=== PATIENT | female | born 1940 | race Caucasian/White ===

== ENCOUNTER 2024-10-13 00:42 | Emergency (ER) | payer OTHER, SELFPAY ==
[2024-10-13 00:44] VITALS: BP 119/77
[2024-10-13 02:39] LABS: Urine Albumin 4+ (Neg - Trace); Urine Bilirubin 1+ (Negative); Urine Character Cloudy (Clear); Urine Color Brown; Urine Glucose Negative (Negative); Urine Ketone 1+ (Negative); Urine Leukocyte 3+ (Negative); Urine Nitrite Positive (Negative); Urine Occult Blood 4+ (Negative); Urine Urobilinogen 1+ (Neg - 1+)
--- NOTE | 2024-10-13 03:03 | ED.GENMED ---
History of Present Illness
General
Chief Complaint: Urinary Symptoms
Source: patient
Exam Limitations: none
Time Seen by Provider: 10/13/24 02:30
Nursing documentation reviewed up to this point in time: agreed with
History of Present Illness
History of Present Illness:
83-year-old female presents from [facility] for hematuria. Patient is on Eliquis. Denies any other symptoms. History is limited. Calls to [facility] to hurt thus far unanswered
Review of Systems
Review of Systems
Unable to obtain full review of systems at this time due to: dementia
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
All Other Systems: Not applicable
: Reports bleeding
Psychiatric: Reports anxiety
Phy Exam
General Physical Exam
General Presentation: mild distress
General age: appears stated age
General Habitus: elderly
General Mental: usual mental status
General Chronic Disability: contractures
Motor
Seizure Activity: none
Course
Orders/Labs/Results
Orders:
Orders
10/13/24 02:20
Urinalysis Reflex To Culture Urgent
Date Specimen was Collected: 10/13/24
Time Specimen was Collected: 02:20
Urine Microscopic Reflex Cult Urgent
Urine Culture Urgent
EMILIE Source: U
Specimen Description:
Date Specimen was Collected: 10/13/24
Time Specimen was Collected: 02:20
10/13/24 05:24
Urinalysis Reflex To Culture Urgent
Date Specimen was Collected: 10/13/24
Time Specimen was Collected: 05:22
Urine Microscopic Reflex Cult Urgent
Urine Culture Urgent
EMILIE Source: U
Specimen Description:
Date Specimen was Collected: 10/13/24
Time Specimen was Collected: 05:22
10/13/24 05:50
Fosfomycin [Monurol] 3 gm PO ONCE ONE
10/13/24 05:57
Fosfomycin [Monurol] 3 gm PO ONCE ONE
Abnormal Lab Results
10/13/24 10/13/24
02:20 05:24
Urine Ketones 1+ A 1+ A
(Negative) (Negative)
Ur Occult Blood Reflex 4+ A 4+ A
(Negative) (Negative)
Urine Nitrite (Reflex) Positive A Positive A
(Negative) (Negative)
Urine Bilirubin 1+ A
(Negative)
Leukocyte Esterase Rfl 3+ A 3+ A
(Negative) (Negative)
Urine RBC >100 A /HPF
(0-2)
Urine WBC (Reflex) >100 A /HPF
(0-5)
Urine Bacteria (Reflex) Few A
(Negative)
Urine Albumin (Reflex) 4+ A 4+ A
(Neg - Trace) (Neg - Trace)
Vital Signs
Initial and Last Documented VS:
Initial Vital Signs
Temp Pulse Resp BP Pulse Ox
98.2 F 66 20 119/77 96
10/13/24 00:44 10/13/24 00:44 10/13/24 00:44 10/13/24 00:44 10/13/24 00:44
Last Documented Vital Signs
Temp Pulse Resp BP Pulse Ox
98.2 F 66 20 134/71 95
10/13/24 00:44 10/13/24 00:44 10/13/24 00:44 10/13/24 04:05 10/13/24 04:15
*Critical Care Note
Total Time (30-74mins, 75-104mins- exclusive of procedures): Not Applicable
ED Attending Note
-
Portions of this chart may have been created with voice recognition software.� Occasional wrong word or��sound alike� substitutions may have occurred due to the inherent limitations of voice recognition software.
Discharge Plan
Departure
Patient Disposition: Alf/SNF
Date of Disposition: 10/13/24
Time of Disposition: 06:01
Discharge Problem:
Hematuria, Urinary tract infection
Prescriptions:
No Action
Tubersol 5 tub. unit /0.1 mL Solution
0.1 ml INTRADERMAL ONCE
sennosides [senna] 8.6 mg Tablet
8.6 mg PO HS
trazodone 50 mg Tablet
25 mg PO HS
polyethylene glycol 3350 17 gram Powder In Packet
17 g PO DAILY
pravastatin 40 mg Tablet
40 mg PO DAILY
donepezil 10 mg Tablet
10 mg PO HS
acetaminophen 650 mg Tablet Extended Release
650 mg PO Q4H PRN (Reason: mild pain)
magnesium hydroxide [Milk of Magnesia] 400 mg/5 mL Suspension
30 ml PO HS PRN (Reason: constipation)
nifedipine 60 mg Tablet Extended Release 24hr
60 mg PO DAILY
bisacodyl 10 mg Suppository
10 mg [place] DAILY PRN (Reason: constipation)
levothyroxine 125 mcg Tablet
125 mcg PO DAILY
bupropion HCl 75 mg Tablet
75 mg PO BID
omeprazole 20 mg Capsule,Delayed Release(Dr/Ec)
20 mg PO DAILY
docusate sodium 100 mg Tablet
100 mg PO BID
enoxaparin 100 mg/mL Syringe
94 mg SC DAILY
cholecalciferol (vitamin D3) 50 mcg (2,000 unit) Tablet
50 mcg PO DAILY
Biotene Moisturizing Mouth [place],Non-Aerosol
1 applic MUCOUS MEMBRANE Q2H PRN (Reason: dry mouth)
apixaban 5 mg Tablet
5 mg PO BID
melatonin 3 mg Capsule
6 mg PO HS PRN (Reason: sleep aid)
Referrals:
Josafat Oviedo I., DO [Family Provider] -
Activity Restrictions/Additional Instructions:
You had a one-time dose of antibiotic today. No prescription needed.
It was a pleasure meeting you and taking part in your care. We hope for your continued healing and wellness.
Please read discharge instructions in their entirety. However, they are for general education and may not describe your exact diagnosis at discharge. Information on your ER visit and medical conditions were discussed with you along with appropriate
follow up information...
If indicated, please take your medications as instructed and indicated on discharge paperwork.
Please schedule a follow up appointment as directed. Call to schedule an appointment
Please return to the emergency department with ANY change in, persisting, or worsening of symptoms. If any of your symptoms do not improve, or persist, or become more severe within 6-12 hours, please return to the emergency department for further
care.
Please return to the emergency department if you develop a headache, neck pain/stiffness, fever greater than 100.4F, chest pain, shortness of breath, persistent nausea, vomiting, slurred speech, difficulty walking, numbness/tingling, weakness, signs
of infection or any other symptoms that are worrisome to you.
If you have any questions or concerns please do not hesitate to call the Hospital at or E-mail me directly at [email or web address]
Interventions
Interventions:
*Risk Screen - Suicide Last Done: 10/13/24 00:44
*General Assessment Last Done: 10/13/24 00:44
*Neglect/Abuse Screening Last Done: 10/13/24 00:44
ED-Female Genitourinary Assessment Last Done: 10/13/24 01:59
Discharge Date and Time
Print Language: PERSIAN
[2024-10-13 03:35] LABS: Urine Red Blood Cell >100 /HPF (0-2); Urine White Cell >100 /HPF (0-5)
[2024-10-13 03:39] LABS: Urine Amorphous Seen; Urine Squamous Cell >30 /LPF (Few)
[2024-10-13 03:40] LABS: Urine Calcium Oxalate Crystals Seen; Urine Mucus Many; Urine Urothelial Cell >30 /LPF (FEW)
[2024-10-13 04:05] VITALS: BP 134/71
[2024-10-13 05:05] VITALS: BP 137/82
[2024-10-13 05:47] LABS: Urine Albumin 4+ (Neg - Trace); Urine Bilirubin Negative (Negative); Urine Character Cloudy (Clear); Urine Color Yellow; Urine Glucose Negative (Negative); Urine Ketone 1+ (Negative); Urine Leukocyte 3+ (Negative); Urine Nitrite Positive (Negative); Urine Occult Blood 4+ (Negative); Urine Urobilinogen 1+ (Neg - 1+)
[2024-10-13] MEDS: MONUROL 3 GM PO (06:38)
[2024-10-13 06:41] VITALS: BP 136/79
[2024-10-13 06:43] LABS: Urine Squamous Cell >30 /LPF (Few)
[2024-10-13 06:45] LABS: Urine Amorphous Seen; Urine Bacteria Many (Negative); Urine Calcium Oxalate Crystals Seen; Urine Red Blood Cell >100 /HPF (0-2); Urine Urothelial Cell >30 /LPF (FEW); Urine White Cell >100 /HPF (0-5)
[2024-10-13 06:52] LABS: Urine Mucus Many
[2024-10-13 06:53] LABS: Urine Bacteria Many (Negative)
[2024-10-13 10:34] VITALS: BP 132/76
== END 2024-10-13 10:39 ==
LOC: EMR 00:42
PROVIDERS: EMERGENCY PHYSICIAN Student in an Organized Health Care Education/Training Program; FAMILY PHYSICIAN Internal Medicine
DX: R31.9 Hematuria, unspecified (principal); N39.0 Urinary tract infection, site not specified; Z79.01 Long term (current) use of anticoagulants
CPT/HCPCS: 99282; 81003; 81015; 87077; 87086

== ENCOUNTER 2024-12-07 03:14 | Emergency (ER) | payer MEDICARE, SELFPAY ==
[2024-12-07 03:21] VITALS: BP 139/88; BMI 32.9
[2024-12-07 04:42] LABS: % Basophils 0.8 % (0-2); % Eosinophils 3.9 % (0-6); % Immature Granulocytes 0.8 % (0-0.5); % Neutrophils 62.5 % (42.2-75.2); Absolute Basophils 0.1 10^3/uL (0-0.2); Absolute Eosinophils 0.2 10^3/uL (0-0.7); Absolute Immature Granulocytes 0.1 10^3/uL (0-0.05); Absolute Lymphocytes 1.2 10^3/uL (1.2-3.4); Absolute Monocytes 0.7 10^3/uL (0.1-0.6); Absolute Neutrophils 3.8 10^3/uL (1.4-6.5); Hematocrit 36.8 % (37.0-47.0); Hemoglobin 12.1 g/dL (12.0-16.0); Mean Corp Hgb Conc. 32.9 g/dL (33.0-37.0); Mean Corpuscular Hgb 30.6 pg (27.0-31.0); Mean Corpuscular Volume 92.9 fL (81.0-99.0); Nucleated Red Blood Cells % 0 %; Platelet Count 265 10^3/uL (130-400); Red Blood Cell Count 3.96 10^6/uL (4.20-5.40); Red Cell Dist. Width 16.8 % (11.5-14.5); White Blood Cell Count 6.2 10^3/uL (4.8-10.8)
[2024-12-07 04:55] LABS: ALT (SGPT) 19 U/L (0-35); AST (SGOT) 28 U/L (14-36); Albumin 3.3 g/dl (3.5-5.0); Alkaline Phosphatase 93 U/L (38-126); Blood Urea Nitrogen 30 mg/dl (7-17); Calcium 10.3 mg/dl (8.4-10.2); Carbon Dioxide 25 mmol/L (22-30); Chloride 102 mmol/L (98-107); Estimated Creatinine Clearance 35 ml/min; Glucose 91 mg/dl (70-99); Potassium 4.1 mmol/L (3.5-5.1); Sodium 137 mmol/L (135-145); Total Bilirubin 0.8 mg/dl (0.2-1.3); Total Protein 5.8 g/dl (6.3-8.2); eGFR 44.91
--- NOTE | 2024-12-07 05:00 | ED.GENMED ---
History of Present Illness
<Seun Jovel MD, Resident - Last Filed: 12/07/24 06:36>
General
Chief Complaint: Fall
Time Seen by Provider: 12/07/24 04:07
History of Present Illness
History of Present Illness:
This is an 84-year-old female with medical history of Alzheimer's dementia who presents from nursing facility [facility] after episode of mechanical fall. Unable to obtain history from patient due to dementia. History obtained from EMS report.
Per ME Staff, patient is bedbound at baseline but tried to get up to go use the bathroom this evening. Patient fell, hit her head. Although they aren't sure if she had Loss of consciousness. Her forehead is bruised. I have tried calling [facility] to obtain history, no response.
Review of Systems
<Seun Jovel MD, Resident - Last Filed: 12/07/24 06:36>
Review of Systems
Unable to obtain full review of systems at this time due to: dementia
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
Phy Exam
<Seun Jovel MD, Resident - Last Filed: 12/07/24 06:36>
General Physical Exam
General Presentation: moderate distress
General Habitus: obese
Course
<Seun Jovel MD, Resident - Last Filed: 12/07/24 06:36>
Orders/Labs/Results
Orders:
Orders
12/07/24 03:17
CT Head W/o Iv Contrast Urgent
Comment:
Reason For Exam: fall with head strike on thinners
Cervical Spine wo Contrast CT [CT Cervical Spine W/o Iv Contr] Urgent
Comment:
Reason For Exam: fall with head strike on thinners
CR Humerus - Right Min 2 View* Urgent
Comment:
Reason For Exam: fall
Shoulder, Right, Trauma [CR Shoulder, Trauma - Right] Urgent
Comment:
Reason For Exam: fall
12/07/24 03:25
CR Shoulder, Trauma - Left Urgent
Comment:
Reason For Exam: pain after fall
Humerus, Left 2 Views [CR Humerus - Left Min 2 Views*] Urgent
Comment:
Reason For Exam: pain s/p fall
12/07/24 04:18
Complete Blood Count/With Diff Urgent
Comprehensive Metabolic Panel Urgent
Urinalysis Reflex To Culture Urgent
Date Specimen was Collected: 12/07/24
Time Specimen was Collected: 04:02
Urine Microscopic Reflex Cult Urgent
Urine Culture Urgent
EMILIE Source: U
Specimen Description:
Date Specimen was Collected: 12/07/24
Time Specimen was Collected: 04:02
Abnormal Lab Results
12/07/24
04:18
RBC 3.96 L 10^6/uL
(4.20-5.40)
Hct 36.8 L %
(37.0-47.0)
MCHC 32.9 L g/dL
(33.0-37.0)
RDW 16.8 H %
(11.5-14.5)
MPV 11.0 H fL
(7.4-10.4)
Abs Immat Gran (auto) 0.1 H 10^3/uL
(0-0.05)
Absolute Monos (auto) 0.7 H 10^3/uL
(0.1-0.6)
Immature Gran % 0.8 H %
(0-0.5)
Lymphocytes % 20.0 L %
(20.5-51.1)
Monocytes % 12.0 H %
(1.7-9.3)
BUN 30 H mg/dl
(7-17)
Creatinine 1.2 H mg/dL
(0.6-1.0)
Calcium 10.3 H mg/dl
(8.4-10.2)
Total Protein 5.8 L g/dl
(6.3-8.2)
Albumin 3.3 L g/dl
(3.5-5.0)
Urine Ketones 1+ A
(Negative)
Ur Occult Blood Reflex 4+ A
(Negative)
Leukocyte Esterase Rfl 3+ A
(Negative)
Urine RBC 60-70 A /HPF
(0-2)
Urine WBC (Reflex) >100 A /HPF
(0-5)
Urine Bacteria (Reflex) Many A
(Negative)
Urine Albumin (Reflex) 3+ A
(Neg - Trace)
12/07/24 04:18
12/07/24 04:18
Vital Signs
Initial and Last Documented VS:
Initial Vital Signs
Pulse Ox
96
12/07/24 03:19
Last Documented Vital Signs
Temp Pulse Resp BP Pulse Ox
97.6 F 76 15 155/91 98
12/07/24 03:21 12/07/24 06:00 12/07/24 05:15 12/07/24 06:00 12/07/24 05:15
<Maddie Egan DO - Last Filed: 12/07/24 07:13>
Orders/Labs/Results
Orders:
Orders
12/07/24 03:17
CT Head W/o Iv Contrast Urgent
Comment:
Reason For Exam: fall with head strike on thinners
Cervical Spine wo Contrast CT [CT Cervical Spine W/o Iv Contr] Urgent
Comment:
Reason For Exam: fall with head strike on thinners
CR Humerus - Right Min 2 View* Urgent
Comment:
Reason For Exam: fall
Shoulder, Right, Trauma [CR Shoulder, Trauma - Right] Urgent
Comment:
Reason For Exam: fall
12/07/24 03:25
CR Shoulder, Trauma - Left Urgent
Comment:
Reason For Exam: pain after fall
Humerus, Left 2 Views [CR Humerus - Left Min 2 Views*] Urgent
Comment:
Reason For Exam: pain s/p fall
12/07/24 04:18
Complete Blood Count/With Diff Urgent
Comprehensive Metabolic Panel Urgent
Urinalysis Reflex To Culture Urgent
Date Specimen was Collected: 12/07/24
Time Specimen was Collected: 04:02
Urine Microscopic Reflex Cult Urgent
Urine Culture Urgent
EMILIE Source: U
Specimen Description:
Date Specimen was Collected: 12/07/24
Time Specimen was Collected: 04:02
Abnormal Lab Results
12/07/24
04:18
RBC 3.96 L 10^6/uL
(4.20-5.40)
Hct 36.8 L %
(37.0-47.0)
MCHC 32.9 L g/dL
(33.0-37.0)
RDW 16.8 H %
(11.5-14.5)
MPV 11.0 H fL
(7.4-10.4)
Abs Immat Gran (auto) 0.1 H 10^3/uL
(0-0.05)
Absolute Monos (auto) 0.7 H 10^3/uL
(0.1-0.6)
Immature Gran % 0.8 H %
(0-0.5)
Lymphocytes % 20.0 L %
(20.5-51.1)
Monocytes % 12.0 H %
(1.7-9.3)
BUN 30 H mg/dl
(7-17)
Creatinine 1.2 H mg/dL
(0.6-1.0)
Calcium 10.3 H mg/dl
(8.4-10.2)
Total Protein 5.8 L g/dl
(6.3-8.2)
Albumin 3.3 L g/dl
(3.5-5.0)
Urine Ketones 1+ A
(Negative)
Ur Occult Blood Reflex 4+ A
(Negative)
Leukocyte Esterase Rfl 3+ A
(Negative)
Urine RBC 60-70 A /HPF
(0-2)
Urine WBC (Reflex) >100 A /HPF
(0-5)
Urine Bacteria (Reflex) Many A
(Negative)
Urine Albumin (Reflex) 3+ A
(Neg - Trace)
12/07/24 04:18
12/07/24 04:18
Vital Signs
Initial and Last Documented VS:
Initial Vital Signs
Pulse Ox
96
12/07/24 03:19
Last Documented Vital Signs
Temp Pulse Resp BP Pulse Ox
97.6 F 76 15 155/91 98
12/07/24 03:21 12/07/24 06:00 12/07/24 05:15 12/07/24 06:00 12/07/24 05:15
<Seun Jovel MD, Resident - Last Filed: 12/07/24 06:36>
MDM/Problems Addressed
MDM/Problems Addressed:
84-year-old female with past medical history of Alzheimer's dementia presents to the ED after falling at the care home while trying to graze bathroom. Patient is bedbound at baseline. She did strike her head. At this time we will evaluate with
CT scan of the head. In addition we will order a cervical spine CT
<Seun Jovel MD, Resident - Last Filed: 12/07/24 06:36>
*Critical Care Note
Total Time (30-74mins, 75-104mins- exclusive of procedures): Not Applicable
<Maddie Egan DO - Last Filed: 12/07/24 07:13>
*Radiology
Radiology exam reviewed: preliminary read by ED provider (Chronic appearing right proximal humerus fracture. Left humerus and shoulder x-rays unremarkable.) and radiology read reviewed
*Pulse Oximetry
Patient hypoxic: no
ED Attending Note
<Seun Jovel MD, Resident - Last Filed: 12/07/24 06:36>
-
Portions of this chart may have been created with voice recognition software.� Occasional wrong word or��sound alike� substitutions may have occurred due to the inherent limitations of voice recognition software.
<Maddie Egan DO - Last Filed: 12/07/24 07:13>
ED Attending Note
Patient seen and examined by attending physician: Yes
I performed a history and physical exam of patient and discussed management with resident, I reviewed resident's note and agree with documented findings and plan of care.: Yes
ED Attending Note:
This is an 84-year-old woman, resident of a local care home. She has prior history of C2 cervical spine fracture, history of right proximal humerus fracture, chronic kidney disease, neurogenic bladder with chronic indwelling Torres catheter.
Nonambulatory according to care home. History of dementia, DVT, chronically maintained on Eliquis.
Suffered an unwitnessed fall at the care home, apparently tried to get up out of bed and has sustained a right forehead contusion.
She arrives via EMS with cervical collar in place. According to EMS and nursing staff patient is at her baseline neurologic state. No focal neurodeficits. She does have an element of chronic neck and shoulder pain.
According to our nursing staff patient arrived with Torres catheter partially dislodged. This was removed by our nursing staff and a new Torres catheter placed.
Patient is awake and alert, confused, denies falling.
HEENT: Right forehead soft tissue contusion. Moderate local tenderness to palpation. Extraocular muscles intact.
Cervical collar in place. Loosened by myself. There is no midline bony tenderness. No step-off deformity. Cervical collar resecured.
Mild tenderness about the right shoulder with mildly decreased range of motion right shoulder. There is no contusion or soft tissue swelling.
No chest wall tenderness. Heart is regular rate and rhythm.
Lungs are clear to auscultation.
Abdomen is rotund, soft, nontender. Torres catheter in place draining yellow slightly cloudy urine.
Extremities: No clubbing or cyanosis nor edema. Peripheral pulses are full and equal.
Neuro: Awake and alert, oriented x 1. No focal neurodeficits.
This patient maintained on Eliquis, forehead contusion concern for intracranial injury. Will check CT of the head.
History of C2 cervical spine fracture; will check CT cervical spine.
Overall appears to be at her baseline.
06:55
CT of the head shows no acute traumatic findings. Forehead contusion noted. No calvarial fracture.
Age-indeterminate dens fracture�nondisplaced. This appears consistent with history.
X-rays show chronic appearing impacted right proximal humerus fracture. No fracture to the left shoulder nor upper arm.
Labs are unremarkable. Normal white blood cell count. Creatinine of 1.2 I suspect this patient's baseline.
She remains afebrile.
Urinalysis is pending and I suspect chronic bacteriuria related to chronic indwelling Torres catheter. As patient has been afebrile, normal white blood cell count will hold off on antibiotic and await urine culture.
Will keep cervical collar in place and will discharge back to care home for continued care.
Discharge Plan
Departure
Patient Disposition: Senior Living/SNF
Date of Disposition: 12/07/24
Time of Disposition: 06:57
Discharge Problem:
Fall at care home, Forehead contusion, Nondisplaced odontoid fracture with type II morphology and delayed healing, chronic right proximal humerus fracture, Urinary catheter (Torres) change required
Instructions: Head Injury in Adults (DC), Preventing falls in adults
Prescriptions:
No Action
sennosides [senna] 8.6 mg Tablet
8.6 mg PO HS
trazodone 50 mg Tablet
25 mg PO HS
polyethylene glycol 3350 17 gram Powder In Packet
17 g PO DAILY
pravastatin 40 mg Tablet
40 mg PO DAILY
donepezil 10 mg Tablet
10 mg PO HS
acetaminophen 650 mg Tablet Extended Release
650 mg PO Q4H PRN (Reason: mild pain)
magnesium hydroxide [Milk of Magnesia] 400 mg/5 mL Suspension
30 ml PO HS PRN (Reason: constipation)
nifedipine 60 mg Tablet Extended Release 24hr
60 mg PO DAILY
bisacodyl 10 mg Suppository
10 mg [place] DAILY PRN (Reason: constipation)
levothyroxine 125 mcg Tablet
125 mcg PO DAILY
bupropion HCl 75 mg Tablet
75 mg PO BID
omeprazole 20 mg Capsule,Delayed Release(Dr/Ec)
20 mg PO DAILY
docusate sodium 100 mg Tablet
100 mg PO BID
cholecalciferol (vitamin D3) 50 mcg (2,000 unit) Tablet
50 mcg PO DAILY
Biotene Moisturizing Mouth [place],Non-Aerosol
1 applic MUCOUS MEMBRANE Q2H PRN (Reason: dry mouth)
apixaban 5 mg Tablet
5 mg PO BID
melatonin 3 mg Capsule
6 mg PO HS
ipratropium-albuterol 0.5 mg-3 mg(2.5 mg base)/3 mL Solution For Nebulization
3 ml INHALATION Q6H PRN (Reason: sob)
Referrals:
Josafat Oviedo I., DO [Family Provider] - Call in 1-3 days for appt
Activity Restrictions/Additional Instructions:
torres catheter changed
urine culture is pending
Interventions
Interventions:
*Risk Screen - Suicide Last Done: 12/07/24 03:21
*General Assessment Last Done: 12/07/24 03:21
*Neglect/Abuse Screening Last Done: 12/07/24 03:21
*ED COVID-19 Vaccine History Last Done: 12/07/24 03:21
ED-Musculoskeletal Assessment Last Done: 12/07/24 03:30
ED- Neurological Assessment Last Done: 12/07/24 03:30
ED-Skin Assessment Last Done: 12/07/24 03:30
Discharge Date and Time
Print Language: TAMAZIGHT
[2024-12-07 05:17] LABS: Urine Albumin 3+ (Neg - Trace); Urine Bilirubin Negative (Negative); Urine Character Cloudy (Clear); Urine Color Amber; Urine Glucose Negative (Negative); Urine Ketone 1+ (Negative); Urine Leukocyte 3+ (Negative); Urine Nitrite Negative (Negative); Urine Occult Blood 4+ (Negative); Urine Urobilinogen Negative (Neg - 1+)
[2024-12-07 06:00] VITALS: BP 155/91
[2024-12-07 06:26] LABS: Urine Bacteria Many (Negative); Urine Squamous Cell >30 /LPF (Few); Urine White Cell >100 /HPF (0-5)
[2024-12-07 06:27] LABS: Urine Red Blood Cell 60-70 /HPF (0-2)
[2024-12-07 06:28] LABS: Urine Calcium Oxalate Crystals Seen
[2024-12-07 07:00] VITALS: BP 124/66
[2024-12-07 08:01] VITALS: BP 175/79
[2024-12-07 09:00] VITALS: BP 142/69
== END 2024-12-07 09:17 ==
LOC: EMR 03:14
PROVIDERS: EMERGENCY PHYSICIAN Emergency Medicine; FAMILY PHYSICIAN Internal Medicine
DX: S00.83XA Contusion of other part of head, initial encounter (principal); W19.XXXA Unspecified fall, initial encounter; S12.112G Nondisplaced Type II dens fracture, subsequent encounter for fracture with delayed healing; M84.421A Pathological fracture, right humerus, initial encounter for fracture; G89.29 Other chronic pain; M54.2 Cervicalgia; F02.80 Dementia in other diseases classified elsewhere, unspecified severity, without behavioral disturbance, psychotic disturbance, mood disturbance, and anxiety; G30.9 Alzheimer's disease, unspecified; N18.9 Chronic kidney disease, unspecified; N31.9 Neuromuscular dysfunction of bladder, unspecified; Z46.6 Encounter for fitting and adjustment of urinary device; Z74.01 Bed confinement status; I82.509 Chronic embolism and thrombosis of unspecified deep veins of unspecified lower extremity; Z79.01 Long term (current) use of anticoagulants
CPT/HCPCS: 51702; 99284; 70450; 72125; 73030; 73060; 80053; 81003; 81015; 85025; 87086

== ENCOUNTER 2025-01-09 13:36 | Emergency (ER) | payer MEDICARE, SELFPAY ==
[2025-01-09 13:46] VITALS: BP 143/125
[2025-01-09 14:00] VITALS: BP 118/72
[2025-01-09 15:00] VITALS: BP 111/65
[2025-01-09 16:00] VITALS: BP 81/53
[2025-01-09 17:00] VITALS: BP 109/94
[2025-01-09 19:07] LABS: Urine Albumin 4+ (Neg - Trace); Urine Bilirubin Negative (Negative); Urine Character Cloudy (Clear); Urine Color Yellow; Urine Glucose Negative (Negative); Urine Ketone 1+ (Negative); Urine Leukocyte 3+ (Negative); Urine Nitrite Positive (Negative); Urine Occult Blood 4+ (Negative); Urine Specific Gravity 1.025 (<1.030); Urine Urobilinogen Negative (Neg - 1+)
[2025-01-09 19:07] LABS: % Basophils 0.8 % (0-2); % Eosinophils 0.9 % (0-6); % Immature Granulocytes 2.8 % (0-0.5); % Monocytes 5.9 % (1.7-9.3); % Neutrophils 76.6 % (42.2-75.2); Absolute Basophils 0.1 10^3/uL (0-0.2); Absolute Eosinophils 0.1 10^3/uL (0-0.7); Absolute Immature Granulocytes 0.3 10^3/uL (0-0.05); Absolute Lymphocytes 1.3 10^3/uL (1.2-3.4); Absolute Monocytes 0.6 10^3/uL (0.1-0.6); Absolute Neutrophils 7.5 10^3/uL (1.4-6.5); Hematocrit 40.9 % (37.0-47.0); Hemoglobin 13.8 g/dL (12.0-16.0); Mean Corp Hgb Conc. 33.7 g/dL (33.0-37.0); Mean Corpuscular Hgb 31.2 pg (27.0-31.0); Mean Corpuscular Volume 92.3 fL (81.0-99.0); Mean Platelet Volume 10.8 fL (7.4-10.4); Nucleated Red Blood Cells % 0 %; Platelet Count 288 10^3/uL (130-400); Red Blood Cell Count 4.43 10^6/uL (4.20-5.40); Red Cell Dist. Width 16.2 % (11.5-14.5); White Blood Cell Count 9.8 10^3/uL (4.8-10.8)
[2025-01-09 19:22] LABS: Urine Bacteria Many (Negative); Urine White Cell >100 /HPF (0-5)
[2025-01-09 19:29] LABS: ALT (SGPT) 15 U/L (0-35); AST (SGOT) 23 U/L (14-36); Albumin 3.2 g/dl (3.5-5.0); Alkaline Phosphatase 75 U/L (38-126); Blood Urea Nitrogen 39 mg/dl (7-17); Calcium 10.1 mg/dl (8.4-10.2); Carbon Dioxide 21 mmol/L (22-30); Chloride 110 mmol/L (98-107); Glucose 91 mg/dl (70-99); Potassium 3.8 mmol/L (3.5-5.1); Sodium 140 mmol/L (135-145); Total Bilirubin 0.8 mg/dl (0.2-1.3); Total Protein 5.7 g/dl (6.3-8.2)
[2025-01-09] MEDS: MONUROL 3 GM PO (20:40)
--- NOTE | 2025-01-10 15:56 | ED.GENMED ---
History of Present Illness
General
Chief Complaint: Change in Mental Status
Source: family (daughter) and long-term
Exam Limitations: none
Time Seen by Provider: 01/09/25 16:40
Nursing documentation reviewed up to this point in time: agreed with
History of Present Illness
History of Present Illness:
Patient to ED from [place] for report of unresponsiveness by NH staff. EMS reports ptient was sitting in chair talking when they arrived. Brought to ED for eval. She is awake but confused (baseling). Daughter at bedside. Daughter does not note any
changes with patient.
Past History
Past History
ED Past Medical History: Arrthythmia (afib), GERD, Hypothyroidism and Psychiatric (dementia)
ED Past Surgical History: Urological (urostomy)
Review of Systems
Review of Systems
Allergies reviewed?: Yes
All Other Systems: ROS reviewed and negative except as documented in HPI and ROS
Constitutional: Reports no symptoms
EENT: Reports no symptoms
Respiratory: Reports no symptoms
Cardiac: Reports no symptoms
ABD/GI: Reports no symptoms
: Reports other (urostomy tube. Thick cloudy urine)
Musculoskeletal: Reports no symptoms
Skin: Reports no symptoms
Neurological: Reports no symptoms
Psychiatric: Reports no symptoms (NH staff reports that she was unresponsive earlier today. )
Phy Exam
General Physical Exam
General Presentation: no apparent distress
General age: appears stated age
General Skin: warm and dry
General Habitus: elderly
General Mental: confused (baseline)
Cardiovascular Exam
Cardiovascular Exam: regular rate/rhythm
Pulmonary Exam
Pulmonary Exam: lungs clear and no respiratory distress
Gastrointestinal Exam
Gastrointestinal Exam: normal bowel sounds, non tender, soft, no organomegaly and non distended
Musculoskeletal Exam
Musculoskeletal Exam: full ROM and neuro vasc intact
Skin Exam
Skin Exam: normal color, warm/dry and no rash
Psychiatric Exam
Psychiatric Exam: normal mood/affect
Course
Orders/Labs/Results
Orders:
Orders
01/09/25 17:46
Urinalysis Reflex To Culture Urgent
Date Specimen was Collected: 01/09/25
Time Specimen was Collected: 17:00
Urine Microscopic Reflex Cult Urgent
Urine Culture Urgent
EMILIE Source: U
Specimen Description:
Date Specimen was Collected: 01/09/25
Time Specimen was Collected: 17:00
01/09/25 19:02
Complete Blood Count/With Diff Urgent
Comprehensive Metabolic Panel Urgent
01/09/25 20:18
Fosfomycin [Monurol] 3 gm PO ONCE ONE
Abnormal Lab Results
01/09/25 01/09/25
17:46 19:02
MCH 31.2 H pg
(27.0-31.0)
RDW 16.2 H %
(11.5-14.5)
MPV 10.8 H fL
(7.4-10.4)
Abs Immat Gran (auto) 0.3 H 10^3/uL
(0-0.05)
Absolute Neuts (auto) 7.5 H 10^3/uL
(1.4-6.5)
Immature Gran % 2.8 H %
(0-0.5)
Neutrophils % 76.6 H %
(42.2-75.2)
Lymphocytes % 13.0 L %
(20.5-51.1)
Chloride 110 H mmol/L
(98-107)
Carbon Dioxide 21 L mmol/L
(22-30)
BUN 39 H mg/dl
(7-17)
Creatinine 1.6 H mg/dL
(0.6-1.0)
Total Protein 5.7 L g/dl
(6.3-8.2)
Albumin 3.2 L g/dl
(3.5-5.0)
Urine Ketones 1+ A
(Negative)
Ur Occult Blood Reflex 4+ A
(Negative)
Urine Nitrite (Reflex) Positive A
(Negative)
Leukocyte Esterase Rfl 3+ A
(Negative)
Urine WBC (Reflex) >100 A /HPF
(0-5)
Urine Bacteria (Reflex) Many A
(Negative)
Urine Albumin (Reflex) 4+ A
(Neg - Trace)
01/09/25 19:02
01/09/25 19:02
Vital Signs
Initial and Last Documented VS:
Initial Vital Signs
Temp Pulse Resp Pulse Ox
98.8 F 79 15 97
01/09/25 13:43 01/09/25 13:43 01/09/25 13:43 01/09/25 13:43
Last Documented Vital Signs
Temp Pulse Resp BP Pulse Ox
98.8 F 67 21 109/94 97
01/09/25 13:43 01/09/25 21:00 01/09/25 21:00 01/09/25 17:00 01/09/25 19:00
*Radiology
Radiology exam reviewed: radiology read reviewed
*Pulse Oximetry
Patient hypoxic: no
*Critical Care Note
Total Time (30-74mins, 75-104mins- exclusive of procedures): Not Applicable
Update Note
Update Note:
Patient to ED from [facility] with report of unresponsiveness. In ED she is arousable, talkative but confused (baseline). Labs reviewed. UA reflecting UTI. Monurol given in ED. She remains afebrile. Will discharge back to long-term.
ED Attending Note
-
Portions of this chart may have been created with voice recognition software.� Occasional wrong word or��sound alike� substitutions may have occurred due to the inherent limitations of voice recognition software.
Discharge Plan
Departure
Patient Disposition: Home (Routine Discharge)
Date of Disposition: 01/09/25
Time of Disposition: 20:18
Patient with high blood pressure during this ER visit?: No
Condition: Good
Covid-19: Not Applicable
Discharge Problem:
UTI (urinary tract infection)
Instructions: Urinary tract infections in adults
Prescriptions:
No Action
sennosides [senna] 8.6 mg Tablet
8.6 mg PO HS
trazodone 50 mg Tablet
25 mg PO HS
polyethylene glycol 3350 17 gram Powder In Packet
17 g PO DAILY
pravastatin 40 mg Tablet
40 mg PO DAILY
donepezil 10 mg Tablet
10 mg PO HS
acetaminophen 650 mg Tablet Extended Release
650 mg PO Q4H PRN (Reason: mild pain)
magnesium hydroxide [Milk of Magnesia] 400 mg/5 mL Suspension
30 ml PO HS PRN (Reason: constipation)
nifedipine 60 mg Tablet Extended Release 24hr
60 mg PO DAILY
bisacodyl 10 mg Suppository
10 mg [place] DAILY PRN (Reason: constipation)
levothyroxine 125 mcg Tablet
125 mcg PO DAILY
bupropion HCl 75 mg Tablet
75 mg PO BID
omeprazole 20 mg Capsule,Delayed Release(Dr/Ec)
20 mg PO DAILY
docusate sodium 100 mg Tablet
100 mg PO BID
cholecalciferol (vitamin D3) 50 mcg (2,000 unit) Tablet
50 mcg PO DAILY
Biotene Moisturizing Mouth [place],Non-Aerosol
1 applic MUCOUS MEMBRANE Q2H PRN (Reason: dry mouth)
apixaban 5 mg Tablet
5 mg PO BID
melatonin 3 mg Capsule
6 mg PO HS
ipratropium-albuterol 0.5 mg-3 mg(2.5 mg base)/3 mL Solution For Nebulization
3 ml INHALATION Q6H PRN (Reason: sob)
Referrals:
Jamee Johansen MD [Family Provider] - Tomorrow
Interventions
Interventions:
*Risk Screen - Suicide Last Done: 01/09/25 13:43
*General Assessment Last Done: 01/09/25 13:43
*Neglect/Abuse Screening Last Done: 01/09/25 13:43
*Nursing Disposition Last Done: 01/09/25 21:15
ED- Pulmonary Assessment Last Done: 01/09/25 14:00
ED- Neurological Assessment Last Done: 01/09/25 14:00
ED- Cardiac Assessment Last Done: 01/09/25 14:00
ED Swallowing Screen Last Done: 01/09/25 14:00
Discharge Date and Time
Discharge Date/Time: 01/09/25 21:16
Print Language: ARABIC
== END 2025-01-09 21:16 | disposition home or self-care (01) ==
LOC: EMR 13:36
PROVIDERS: Nurse Practitioner; EMERGENCY PHYSICIAN Student in an Organized Health Care Education/Training Program; FAMILY PHYSICIAN Family Medicine
DX: N39.0 Urinary tract infection, site not specified (principal); I48.91 Unspecified atrial fibrillation; K21.9 Gastro-esophageal reflux disease without esophagitis; E03.9 Hypothyroidism, unspecified; F03.90 Unspecified dementia, unspecified severity, without behavioral disturbance, psychotic disturbance, mood disturbance, and anxiety
CPT/HCPCS: 99283; 80053; 81003; 81015; 85025; 87077; 87086

== ENCOUNTER 2025-01-10 21:27 | Inpatient (IN) | payer MEDICARE, SELFPAY ==
[2025-01-10] VITALS (14 sets, daily range): BP systolic 99–153; BP diastolic 52–92; BMI 31.5
[2025-01-10] MEDS: NSS 1000 IV (16:56)
[2025-01-10 17:06] LABS: Urine Albumin 3+ (Neg - Trace); Urine Bilirubin Negative (Negative); Urine Character Cloudy (Clear); Urine Color Yellow; Urine Glucose Negative (Negative); Urine Ketone 1+ (Negative); Urine Leukocyte 3+ (Negative); Urine Nitrite Positive (Negative); Urine Occult Blood 4+ (Negative); Urine Specific Gravity 1.025 (<1.030); Urine Urobilinogen Negative (Neg - 1+)
[2025-01-10 17:07] LABS: % Basophils 1.2 % (0-2); % Eosinophils 3.9 % (0-6); % Immature Granulocytes 3.6 % (0-0.5); % Lymphocytes 30.3 % (20.5-51.1); % Monocytes 9.2 % (1.7-9.3); % Neutrophils 51.8 % (42.2-75.2); Absolute Basophils 0.1 10^3/uL (0-0.2); Absolute Eosinophils 0.3 10^3/uL (0-0.7); Absolute Immature Granulocytes 0.2 10^3/uL (0-0.05); Absolute Monocytes 0.6 10^3/uL (0.1-0.6); Absolute Neutrophils 3.5 10^3/uL (1.4-6.5); Hematocrit 40.7 % (37.0-47.0); Hemoglobin 13.9 g/dL (12.0-16.0); Mean Corp Hgb Conc. 34.2 g/dL (33.0-37.0); Mean Corpuscular Hgb 31.4 pg (27.0-31.0); Mean Corpuscular Volume 92.1 fL (81.0-99.0); Mean Platelet Volume 11.1 fL (7.4-10.4); Nucleated Red Blood Cells % 0 %; Platelet Count 287 10^3/uL (130-400); Red Blood Cell Count 4.42 10^6/uL (4.20-5.40); Red Cell Dist. Width 16.5 % (11.5-14.5); White Blood Cell Count 6.7 10^3/uL (4.8-10.8)
[2025-01-10 17:17] LABS: Urine Squamous Cell 0-2 /LPF (Few)
[2025-01-10 17:18] LABS: Urine Bacteria Many (Negative); Urine White Cell >100 /HPF (0-5)
[2025-01-10 17:25] LABS: ALT (SGPT) 23 U/L (0-35); AST (SGOT) 37 U/L (14-36); Alkaline Phosphatase 68 U/L (38-126); Blood Urea Nitrogen 40 mg/dl (7-17); Calcium 10.1 mg/dl (8.4-10.2); Carbon Dioxide 24 mmol/L (22-30); Chloride 109 mmol/L (98-107); Estimated Creatinine Clearance 27 ml/min; Glucose 81 mg/dl (70-99); Potassium 3.8 mmol/L (3.5-5.1); Sodium 139 mmol/L (135-145); Total Bilirubin 0.8 mg/dl (0.2-1.3); Total Protein 5.8 g/dl (6.3-8.2); eGFR 34.36
--- NOTE | 2025-01-10 20:25 | ED.GENMED ---
History of Present Illness
General
Chief Complaint: Change in Mental Status
Time Seen by Provider: 01/10/25 16:34
History of Present Illness
History of Present Illness:
Patient is a 84-year-old woman with history of CHF, dementia presenting to the emergency department with change in mental status. Per chart review patient was seen here yesterday and was diagnosed with a UTI and given Monurol. Patient was brought
here today for worsening lethargy difficulty swallowing. Patient at this time has no complaints though is slightly confused but she is at her baseline. Per [facility] they are requesting CT scan of her head as there was concern for possible
seizure-like activity yesterday.
Past History
Past History
ED Past Medical History: Arrthythmia (afib), GERD, Hypothyroidism and Psychiatric (dementia)
ED Past Surgical History: Urological (urostomy)
Phy Exam
Physical Exam
Physical Exam:
GENERAL: in no acute distress
HEENT: normocephalic, extraocular movements intact, dry oral mucosa
NECK: normal inspection
RESPIRATORY: no respiratory distress, clear to auscultation bilaterally
CARDIOVASCULAR: regular rate and rhythm
ABDOMEN/: soft, non-distended, non-tender to palpation, no rebound or guarding
EXTREMITIES: non-tender, no edema/swelling
NEUROLOGIC: awake and alert, moves all extremities, no gross motor or sensory deficits
SKIN: warm
Course
Orders/Labs/Results
Orders:
Orders
01/10/25 16:35
Electrocardiogram (*1) Urgent
Reason for Study: Fatigue / Weakness
CT Head W/o Iv Contrast Urgent
Comment:
Reason For Exam: ams
EKG- Treatment ONCE
01/10/25 16:40
0.9% Sodium Chloride 1000 ml [Nss] 1,000 ml IV BOLUS
01/10/25 16:53
Complete Blood Count/With Diff Urgent
Comprehensive Metabolic Panel Urgent
Urinalysis Reflex To Culture Urgent
Date Specimen was Collected: 01/10/25
Time Specimen was Collected: 16:52
Urine Microscopic Reflex Cult Urgent
Urine Culture Urgent
EMILIE Source: U
Specimen Description:
Date Specimen was Collected: 01/10/25
Time Specimen was Collected: 16:52
01/10/25 19:47
Meropenem [Merrem] 1,000 mg IV NOW STA
Abnormal Lab Results
01/10/25
16:53
MCH 31.4 H pg
(27.0-31.0)
RDW 16.5 H %
(11.5-14.5)
MPV 11.1 H fL
(7.4-10.4)
Abs Immat Gran (auto) 0.2 H 10^3/uL
(0-0.05)
Immature Gran % 3.6 H %
(0-0.5)
Chloride 109 H mmol/L
(98-107)
BUN 40 H mg/dl
(7-17)
Creatinine 1.5 H mg/dL
(0.6-1.0)
AST 37 H U/L
(14-36)
Total Protein 5.8 L g/dl
(6.3-8.2)
Albumin 3.0 L g/dl
(3.5-5.0)
Urine Ketones 1+ A
(Negative)
Ur Occult Blood Reflex 4+ A
(Negative)
Urine Nitrite (Reflex) Positive A
(Negative)
Leukocyte Esterase Rfl 3+ A
(Negative)
Urine WBC (Reflex) >100 A /HPF
(0-5)
Urine Bacteria (Reflex) Many A
(Negative)
Urine Albumin (Reflex) 3+ A
(Neg - Trace)
01/10/25 16:53
01/10/25 16:53
Vital Signs
Blood pressure: 140/58
Initial and Last Documented VS:
Initial Vital Signs
Temp Pulse Resp BP Pulse Ox
97.7 F 71 18 133/92 97
01/10/25 16:13 01/10/25 16:13 01/10/25 16:13 01/10/25 16:13 01/10/25 16:13
Last Documented Vital Signs
Temp Pulse Resp BP Pulse Ox
97.7 F 66 16 140/58 94
01/10/25 16:13 01/10/25 19:30 01/10/25 19:30 01/10/25 20:26 01/10/25 16:45
MDM/Problems Addressed
Differential Diagnosis Includes:
Patient is a 84-year-old woman presenting to the emergency department with change in mental status from custodial. Vitals unremarkable and exam shows a woman with significantly dry oral mucosa but she is at her baseline. Concern for resistant
UTI given patient's history. Could be CVA given what happened yesterday and the dysphagia today. Could have metabolic derangement. Will obtain blood work EKG and CT scan. Will obtain repeat urine.
*Critical Care Note
Total Time (30-74mins, 75-104mins- exclusive of procedures): Not Applicable
Update Note
Update Note:
Blood work does show slightly elevated creatinine. Urine is infected. Per prior culture she does have ESBL. Per the sensitivity will give meropenem. Will also give IV fluids. CT scan negative. Patient will need admission. Discussed with
hospitalist who accepted patient to their service
ED Attending Note
-
Portions of this chart may have been created with voice recognition software.� Occasional wrong word or��sound alike� substitutions may have occurred due to the inherent limitations of voice recognition software.
Discharge Plan
Departure
Patient Disposition: Admit
Date of Disposition: 01/10/25
Time of Disposition: 20:30
Presentation/result/management discussed w/ accepting MD/DO: Hospitalist
Discharge Problem:
Acute UTI
Prescriptions:
No Action
sennosides [senna] 8.6 mg Tablet
17.2 mg PO HS
trazodone 50 mg Tablet
25 mg PO HS
polyethylene glycol 3350 17 gram Powder In Packet
17 g PO DAILY
pravastatin 40 mg Tablet
40 mg PO DAILY
donepezil 10 mg Tablet
10 mg PO HS
acetaminophen 650 mg Tablet Extended Release
650 mg PO Q4HPRN PRN (Reason: mild pain)
magnesium hydroxide [Milk of Magnesia] 400 mg/5 mL Suspension
30 ml PO HSPRN PRN (Reason: constipation)
nifedipine 60 mg Tablet Extended Release 24hr
60 mg PO DAILY
bisacodyl 10 mg Suppository
10 mg [place] DAILYPRN PRN (Reason: if no bm aftr mom)
levothyroxine 125 mcg Tablet
125 mcg PO DAILY
bupropion HCl 75 mg Tablet
75 mg PO BID
omeprazole 20 mg Capsule,Delayed Release(Dr/Ec)
20 mg PO DAILY
docusate sodium 100 mg Tablet
100 mg PO BID
cholecalciferol (vitamin D3) 50 mcg (2,000 unit) Tablet
50 mcg PO DAILY
Biotene Moisturizing Mouth [place],Non-Aerosol
1 applic MUCOUS MEMBRANE Q2HPRN PRN (Reason: dry mouth)
apixaban 5 mg Tablet
5 mg PO BID
ipratropium-albuterol 0.5 mg-3 mg(2.5 mg base)/3 mL Solution For Nebulization
3 ml INHALATION R Q6HPRN PRN (Reason: sob)
melatonin 3 mg Tablet
6 mg PO HS
mirtazapine 15 mg Tablet
15 mg PO HS
Referrals:
Josafat Oviedo I., DO [Family Provider] -
Interventions
Interventions:
*Risk Screen - Suicide Last Done: 01/10/25 16:13
*General Assessment Last Done: 01/10/25 16:13
*Neglect/Abuse Screening Last Done: 01/10/25 16:13
*ED- Fall Risk Assessment Last Done: 01/10/25 16:13
*ED COVID-19 Vaccine History Last Done: 01/10/25 16:13
ED- Cardiac Assessment Last Done: 01/10/25 16:30
ED- Neurological Assessment Last Done: 01/10/25 16:30
ED-Psychological Assessment Last Done: 01/10/25 16:30
ED- Pulmonary Assessment Last Done: 01/10/25 16:30
Discharge Date and Time
Print Language: CAY[place] ISLANDER
[2025-01-10] MEDS: MERREM 1000 MG IV (20:36)
--- NOTE | 2025-01-10 20:44 | HPS.HSE ---
Addendum entered and electronically signed by Olivier Gamble DO 01/10/25 21:43:
Patient seen and examined independently. Agree with findings and plan as set forth by AZUL Burnett.
Patient is an 84y F with PMH significant for dementia, hypertension and A-Fib who presents to ED from local [place] for evaluation of lethargy / unresponsiveness. Patient seen here in the ED yesterday with similar complaints and work-up at that time
was suggestive of UTI. Patient was started on antibiotics and discharged to [place]. Today she continued to be lethargic and was not eating or drinking. She was sent back to the ED for further evaluation.
Patient complains of pain 'all over'. No other specific complaints. She is unable to provide detailed history due to baseline dementia.
Ass:
UTI - Failed outpatient therapy
History of ESBL E coli
CKD III
Paroxysmal A-Fib
Benign Hypertension
Senile Dementia
Anxiety / Depression
Hypothyroidism
Plan:
Admit for further evaluation and treatment.
Continue meropenem pending additional culture data.
ID evaluation.
IVF support.
Continue usual outpatient medications.
Follow for clinical improvement.
Speech eval given recent reports of swallow difficulty / dysphagia.
Original Note:
Family Physician
-
Family Physician: Josafat Oviedo
Chief Complaint
-
confusion
History of Present Illness
84-year-old woman with history of CHF, dementia,CKD, dysphagia, GERD, HTN, atrial fib presenting to the emergency department with change in mental status.yesterday she was unresponsive, diaphoretic and her whole body was shaking which lasted for 3
minutes and then she was back to her baseline. she was evaluated in the ER. gave her a dose of antibiotics for UTI and sent to correction. today she was more lethargic. she was not eating or drinking. She was having trouble swallowing. patient
complained of generalized body ache. denied [place],dizzy, fever chills, chest pain, sob. patient is poor historian. history obtained from nurse at [facility]
UA positive for UTI. admitting for further management.
Medical History
Past Medical History
Past Medical History: Reports Other
Additional Past Medical History:
GERD, systolic heart failure, kidney disease, hypertension, Alzheimer's disease, dementia, depression
Past Surgical History: Reports None
Social History
Tobacco: Non-smoker
Alcohol: None
Drug: None
Personal: Single
Living: Half-Way
Family History
Family History: Not pertinent
Allergies / Home Medications
Allergies reflects when Allergies were last updated in [employer].
Home Medications with original date entered in [employer]
Allergy/Medication List:
Allergies
Allergy/AdvReac Type Severity Reaction Status Date / Time
No Known Allergies Allergy Verified 01/10/25 16:23
Home Medications
acetaminophen 650 mg tablet,extended release 650 mg PO Q4HPRN PRN mild pain 10/13/24
apixaban 5 mg tablet 5 mg PO BID 10/13/24
bisacodyl 10 mg rectal suppository 10 mg [place] DAILYPRN PRN if no bm aftr mom 10/13/24
bupropion HCl 75 mg tablet 75 mg PO BID 10/13/24
cholecalciferol (vitamin D3) 50 mcg (2,000 unit) tablet 50 mcg PO DAILY 10/13/24
docusate sodium 100 mg tablet 100 mg PO BID 10/13/24
donepezil 10 mg tablet 10 mg PO HS 10/13/24
levothyroxine 125 mcg tablet 125 mcg PO DAILY 10/13/24
magnesium hydroxide 400 mg/5 mL oral suspension (Milk of Magnesia) 30 ml PO HSPRN PRN constipation 10/13/24
nifedipine 60 mg tablet,extended release 24 hr 60 mg PO DAILY 10/13/24
omeprazole 20 mg capsule,delayed release 20 mg PO DAILY 10/13/24
polyethylene glycol 3350 17 gram oral powder packet 17 g PO DAILY 10/13/24
pravastatin 40 mg tablet 40 mg PO DAILY 10/13/24
saliva stimulant comb. no.3 (Biotene Moisturizing Mouth mucosal spray) 1 applic mucous membrane Q2HPRN PRN dry mouth 10/13/24
sennosides 8.6 mg tablet (senna) 17.2 mg PO HS 10/13/24
trazodone 50 mg tablet 25 mg PO HS 10/13/24
ipratropium 0.5 mg-albuterol 3 mg (2.5 mg base)/3 mL nebulization soln 3 ml inhalation R Q6HPRN PRN sob 12/07/24
melatonin 3 mg tablet 6 mg PO HS 01/10/25
mirtazapine 15 mg tablet 15 mg PO HS 01/10/25
Review of Systems
-
Constitutional: Reports No Symptoms
EENT: Reports No Symptoms
Respiratory: Reports No Symptoms
Cardiac: Reports No Symptoms
Abdomen/GI: Reports No Symptoms
: Reports No Symptoms
Musculoskeletal: Reports No Symptoms
Skin: Reports No Symptoms
Neurological: Reports No Symptoms
Endocrine: Reports No Symptoms
Hematologic/Lymphatic: Reports No Symptoms
Psych: Reports No Symptoms
Physical Exam
Vital Signs
Vital Signs
Temp Pulse Resp BP Pulse Ox
97.7 F 61 14 140/58 94
01/10/25 16:13 01/10/25 20:30 01/10/25 20:30 01/10/25 20:26 01/10/25 16:45
Physical Exam
General: Well Developed, Well Nourished and No Apparent Distress
HEENT: NormoCephalic, Moist mucous membranes and Atraumatic
Respiratory: Clear
Cardiac: S1/S2 and Regular Rhythm; No Murmur or Rub
GI: Soft, Non Tender, Non Distended and Normal Bowel Sounds; No Organomegaly
Rectal: Deferred by Provider
Musculoskeletal: No Clubbing, No Cyanosis and No Edema
Skin: No Rash
Neuro: Nonfocal/grossly intact
Psych: Confused
Laboratory Results
-
01/10/25 16:53
01/10/25 16:53
Laboratory Results
Total Bilirubin 0.8 mg/dl (0.2-1.3) 01/10/25 16:53
AST 37 U/L (14-36) H 01/10/25 16:53
ALT 23 U/L (0-35) 01/10/25 16:53
Alkaline Phosphatase 68 U/L (38-126) 01/10/25 16:53
Data Reviewed
-
CT Scan: Report Reviewed by me
Lab Data: Labs Reviewed by me
Impression/Plan
-
# Metabolic encephalopathy secondary to urinary tract infection
- IV meropenem continue
- CT head negative
-urine culture pending
-ID consult
# CKD stage 3b
- Creatinine 1.5
#paroxysmal atrial fib
-eliquis continued
#depression/anxiety
#Dementia/alzhmiers
-bupropion continued
-Aricept continued
-mirtazapine,trazodone continued
#essential HTN
-nifedipine continued
#GERD
-PPI continued
#HLD
-statin continued
#hypothyroidism
-levothyroxine continued
#DVT Prophylaxis
-eliquis
#CODE status
-DNR
[2025-01-11] VITALS (9 sets, daily range): BP systolic 110–158; BP diastolic 45–117; BMI 31.5; BMI 30.7
[2025-01-11] MEDS: SENOKOT 17.2 MG PO (02:11)
[2025-01-11] MEDS: ELIQUIS 5 MG PO ×3 (02:12→21:34)
[2025-01-11] MEDS: REMERON 15 MG PO ×2 (02:12→21:37)
[2025-01-11] MEDS: MELATONIN 6 MG PO ×2 (02:17→21:36)
[2025-01-11] MEDS: DESYREL 25 MG PO ×2 (02:20→21:37)
[2025-01-11] MEDS: ARICEPT 10 MG PO ×2 (02:21→21:36)
[2025-01-11] MEDS: WELLBUTRIN REGULAR RELEASE 75 MG PO ×3 (03:11→21:36)
[2025-01-11] MEDS: MERREM 500 MG IV ×3 (06:21→21:37)
[2025-01-11] MEDS: STERILE WATER FOR INJECTION 10 ML IV ×3 (06:22→21:37)
[2025-01-11] MEDS: SYNTHROID 125 MCG PO (06:22)
[2025-01-11] MEDS: COLACE 100 MG PO (08:49)
[2025-01-11] MEDS: PROCARDIA XL (EXTENDED RELEASE) 60 MG PO (08:49)
[2025-01-11] MEDS: PRAVACHOL 40 MG PO (08:49)
[2025-01-11] MEDS: PROTONIX 40 MG PO (08:49)
[2025-01-11] MEDS: MIRALAX 17 GRAMS PO (08:49)
[2025-01-11] MEDS: DESENEX/MITRAZOL/ZEASORB 1 APPLIC TOPICAL ×2 (08:55→21:55)
--- NOTE | 2025-01-11 10:15 | W.PN.HOSP.TC ---
Today's Communication/Plan
-
Continue meropenem
CT abdomen pelvis.
Assessment / Plan
Assessment / Plan
Impression
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
Plan
#Altered mental status
Likely from urinary tract infection or polypharmacy
U/A evidence of UTI, culture pending (preliminary Gram stain�gram-negative rods)
No elevated white count, patient afebrile
ID on board
CT head negative for acute intracranial abnormality
History of recurrent UTIs, with MDR ESBL E. coli
Patient has suprapubic catheter
Started on meropenem, continue
#Left lower quadrant tenderness
Diverticulitis versus cystitis versus left pyelonephritis
Ordered CT abdomen/pelvis
#Paroxysmal A-fib
Continue Eliquis
#CKD stage IIIb
Creatinine at 1.5
Continue to monitor
#Depression/anxiety/dementia
Continue Aricept, mirtazapine, trazodone
#Essential hypertension
Continue nifedipine
#GERD
PPI
#Hypothyroidism
Continue levothyroxine
CODE STATUS�DNR
DVT prophylaxis�Eliquis
Anticipated Discharge: 24 - 48 hours
Subjective/Interval History
-
Date of Service: January 11, 2025
Patient is confused, but responding to verbal commands.
Objective Data
-
Labs:
Laboratory Results
01/11/25
06:00
Sodium Pending
Potassium Pending
Chloride Pending
Carbon Dioxide Pending
BUN Pending
Creatinine Pending
Glucose Pending
Calcium Pending
Vital Signs:
Vital Signs
Temp Pulse Resp BP Pulse Ox
98.1 F 69 16 110/68 99
01/11/25 08:16 01/11/25 08:49 01/11/25 08:16 01/11/25 08:49 01/11/25 08:30
Review of Systems
-
Unable to obtain full review of systems at this time due to: Dementia
Physical Exam
-
General: No Apparent Distress
HEENT: Normocephalic and Atraumatic
Respiratory: Clear to Auscultation
Cardiac: Regular Rhythm and S1/S2
GI: Tender (Left lumbar quadrant)
Genito-urinary: Supra Pubic Tube
Skin: Warm and Dry
Neuro: Awake and Alert; Negative Oriented (AAO X1)
Psych: Confused
--- NOTE | 2025-01-11 10:39 | CM ---
Pt admitted with UTI. Noted hx of dementia.
Called [facility], spoke to RN Cattle Farmer Veronica. Told pt is a 1-2 person assist. [facility] out of bed. Total care for adl's. Pt is there on their short term unit.
Called daughter Augustine at [phone] and left non urgent VM requesting callback.
Message to liasion re: short term vs ltc and bed hold, pending response.
CM to follow up.
--- NOTE | 2025-01-11 11:34 | CON.ID ---
Consultation
-
Date/Time Consultation Requested: January 11, 2025 0136
Date/Time Consultation Performed: January 11, 2025 1135
Requesting Provider: AZUL Burnett
Performing Provider: Dr. Angélica Chaves
Reason for Consultation: Resistant UTI
Chief Complaint / Past History
Chief Complaint
Change in mental status
History of Present Illness
84-year-old female with history of dementia, CKD 3, atrial fibrillation who was sent to the ED from [facility] January 09 due to decreased mental status, diaphoretic, shaking. UA was positive for nitrite, leukocytosis esterase, more than 100 white blood
cells. She received fosfomycin x 1 then discharged back to [facility]. However patient continued to have lethargy with very poor p.o. intake. She was sent back to the ER yesterday. The urine culture from January 09 is growing gram-negative
rods. Patient with history of ESBL E. coli in the urine back in September. She was started on meropenem. Patient appears to be more alert today. She denies dysuria, or urinary frequency. Complains of lower abdominal pain. However she was not
able to tell me when it started. She feels weak. She feels cold. No diarrhea.
Past History
Additional Past Medical History:
Dementia
Hypertension
Paroxysmal atrial fibrillation
CKD 3
Hypothyroidism
Hx ESBL-Ecoli in urine
Anxiety/depression
Allergy History:
No Known Allergies Allergy (Verified 01/10/25 16:23)
Medications Reviewed: Yes
Current Antibiotics:
Meropenem 500mg IV q8h
Social History
Tobacco: Non-Smoker
Alcohol: None
Drug: None
Living: Jail ([facility])
Family History
Family History: Not Pertinent
Review of Systems
Review of Systems
General: Chills and Change in Appetite; Negative Fever
HEENT: Negative Sinus Problems or Headache
Respiratory: Negative Dyspnea or Cough
Gasteroenterology: Negative Nausea, Vomiting or Diarrhea
Genital / Urological: Flank Pain (Mild on the left side); Negative Dysuria
Endocrine: Weakness and Fatigue
Skin / Hair / Nails: Negative Rash
Neurological: Negative Dizziness
All systems: All other systems were reviewed and were negative
Vital Signs
Temp Pulse Resp BP Pulse Ox
98.1 F 69 16 110/68 99
01/11/25 08:16 01/11/25 08:49 01/11/25 08:16 01/11/25 08:49 01/11/25 10:17
Physical Exam
Physical Exam
Constitutional: Acutely Ill
Eyes: No Conjunctival Hemorrhage and Sclera Anicteric
Cardiovascular: Regular Rate and S1/S2
Pulmonary: Clear
Gastrointestinal: Soft and Tender (Lower mid abd, LLQ)
Genito-Urinary: Negative CVA Tenderness
Extremities: Negative Edema
Neurological: Awake; Negative Meningeal Signs
Lab / Diagnostic Study Results
01/10/25 16:53
Abs Immat Gran (auto) 0.2 10^3/uL (0-0.05) H 01/10/25 16:53
Absolute Neuts (auto) 3.5 10^3/uL (1.4-6.5) 01/10/25 16:53
Absolute Lymphs (auto) 2.0 10^3/uL (1.2-3.4) 01/10/25 16:53
Absolute Monos (auto) 0.6 10^3/uL (0.1-0.6) 01/10/25 16:53
Absolute Basos (auto) 0.1 10^3/uL (0-0.2) 01/10/25 16:53
Immature Gran % 3.6 % (0-0.5) H 01/10/25 16:53
Neutrophils % 51.8 % (42.2-75.2) 01/10/25 16:53
Lymphocytes % 30.3 % (20.5-51.1) 01/10/25 16:53
Monocytes % 9.2 % (1.7-9.3) 01/10/25 16:53
Eosinophils % 3.9 % (0-6) 01/10/25 16:53
Basophils % 1.2 % (0-2) 01/10/25 16:53
Ur Squamous Epith Cells 0-2 /LPF (Few) 01/10/25 16:53
Microbiology Results
Micro:
01/11/25 05:17 MRSA Screen - Pending
Nose
01/10/25 16:53 Urine Culture - Pending
Urine
01/10/[address]: No acute intracranial abnormality. Chronic left mastoid effusion.
Assessment / Plan
# UTI
# LLQ tenderness - ?diverticulitis vs left pyelo
# TME
# CKD3
- Ucx GNR, suspect ESBL-Ecoli as previous
-Agree with meropenem for now.
-Consider CT a/p with oral contrast +/- IV contrast
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
Dementia
Hypertension
Paroxysmal atrial fibrillation
CKD 3
Hypothyroidism
Hx ESBL-Ecoli in urine
Anxiety/depression
SNF resident
Care Review
Plan reviewed with: Physician (Drs. Franks and Casandra)
[2025-01-11] MEDS: LR 1000 IV (13:18)
[2025-01-11] MEDS: ZOFRAN 4 MG IV (13:18)
[2025-01-11 14:09] LABS: Blood Urea Nitrogen 32 mg/dl (7-17); Calcium 9.9 mg/dl (8.4-10.2); Carbon Dioxide 25 mmol/L (22-30); Chloride 110 mmol/L (98-107); Estimated Creatinine Clearance 29 ml/min; Glucose 81 mg/dl (70-99); Potassium 3.4 mmol/L (3.5-5.1); Sodium 140 mmol/L (135-145); eGFR 37.33
[2025-01-11] MEDS: KLOR-CON 40 MEQ PO (15:44)
[2025-01-11] MEDS: COLACE PO (19:50)
[2025-01-11] MEDS: SENOKOT PO (22:01)
[2025-01-12 03:06] VITALS: BP 130/75
[2025-01-12] MEDS: LR 1000 IV ×2 (03:39→10:48)
[2025-01-12] MEDS: SYNTHROID 125 MCG PO (05:59)
[2025-01-12] MEDS: MERREM 500 MG IV (05:59)
[2025-01-12] MEDS: STERILE WATER FOR INJECTION 10 ML IV (05:59)
[2025-01-12 06:00] VITALS: BMI 31.7
[2025-01-12 07:00] VITALS: BP 137/84
--- NOTE | 2025-01-12 07:13 | W.PN.HOSP.TC ---
Documented by User: Kacey Guajardo MD, Resident 01/12/25 09:53
Today's Communication/Plan
-
.
Assessment / Plan
Assessment / Plan
Impression
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
Plan
# Acute metabolic encephalopathy
Likely from urinary tract infection or polypharmacy
U/A evidence of UTI, culture positive for Klebsiella pneumonia
No elevated white count, patient afebrile
ID on board
CT head negative for acute intracranial abnormality
History of recurrent UTIs, with MDR ESBL E. coli
Patient has suprapubic catheter
Started on meropenem�day 2, continue for now
Appreciate ID input
#Left lower quadrant tenderness
Diverticulitis versus cystitis versus left pyelonephritis
CT abdomen/pelvis�No clear acute inflammatory process
Patient reports abdominal pain has improved
Monitor for now
#Paroxysmal A-fib
Continue Eliquis
#CKD stage IIIb
Creatinine at 1.5
Continue to monitor
#Depression/anxiety/dementia
Continue Aricept, mirtazapine, trazodone
#Essential hypertension
Continue nifedipine
#GERD
PPI
#Hypothyroidism
Continue levothyroxine
CODE STATUS�DNR
DVT prophylaxis�Eliquis
Anticipated Discharge: 24 - 48 hours
Subjective/Interval History
-
Date of Service: January 12, 2025
Patient is at her baseline mental status.
Reports improvement in her abdominal pain.
Objective Data
-
Labs:
Laboratory Results
01/12/25
05:38
WBC Pending
Hgb Pending
Hct Pending
Plt Count Pending
Sodium Pending
Potassium Pending
Chloride Pending
Carbon Dioxide Pending
BUN Pending
Creatinine Pending
Glucose Pending
Calcium Pending
Total Bilirubin Pending
AST Pending
ALT Pending
Alkaline Phosphatase Pending
Vital Signs:
Vital Signs
Temp Pulse Resp BP Pulse Ox
97.8 F 69 16 130/75 99
01/12/25 03:06 01/12/25 03:06 01/12/25 03:06 01/12/25 03:06 01/12/25 03:06
I&O
01/11/25 01/12/25 01/13/25
06:59 06:59 06:59
Intake Total 1070 / 1070
Output Total 200 / 200
Balance 870 / 870
Review of Systems
-
Unable to obtain full review of systems at this time due to: Dementia
Physical Exam
-
General: No Apparent Distress and Comfortable
HEENT: Normocephalic, Atraumatic and Moist Mucous Membranes
Respiratory: Clear to Auscultation
Cardiac: Regular Rhythm and S1/S2
GI: Soft, Nondistended, Normal Bowel Sounds and Tender (Mild tenderness)
Genito-urinary: Supra Pubic Tube
Skin: Warm and Dry
Neuro: Awake, Alert and Oriented (AO X 1)

Documented by User: Yariel Franks DO 01/12/25 12:39
Today's Communication/Plan
-
Continue with antibiotics
Monitor on telemetry
[2025-01-12 08:02] LABS: % Basophils 0.9 % (0-2); % Eosinophils 4.1 % (0-6); % Immature Granulocytes 2.8 % (0-0.5); % Lymphocytes 24.4 % (20.5-51.1); % Monocytes 11.1 % (1.7-9.3); % Neutrophils 56.7 % (42.2-75.2); Absolute Basophils 0.1 10^3/uL (0-0.2); Absolute Eosinophils 0.3 10^3/uL (0-0.7); Absolute Immature Granulocytes 0.2 10^3/uL (0-0.05); Absolute Lymphocytes 1.9 10^3/uL (1.2-3.4); Absolute Monocytes 0.9 10^3/uL (0.1-0.6); Absolute Neutrophils 4.4 10^3/uL (1.4-6.5); Hematocrit 36.4 % (37.0-47.0); Hemoglobin 12.4 g/dL (12.0-16.0); Mean Corp Hgb Conc. 34.1 g/dL (33.0-37.0); Mean Corpuscular Hgb 31.7 pg (27.0-31.0); Mean Corpuscular Volume 93.1 fL (81.0-99.0); Mean Platelet Volume 11.3 fL (7.4-10.4); Nucleated Red Blood Cells % 0 %; Platelet Count 267 10^3/uL (130-400); Red Blood Cell Count 3.91 10^6/uL (4.20-5.40); Red Cell Dist. Width 16.5 % (11.5-14.5); White Blood Cell Count 7.7 10^3/uL (4.8-10.8)
[2025-01-12 08:13] LABS: ALT (SGPT) 14 U/L (0-35); AST (SGOT) 21 U/L (14-36); Albumin 2.4 g/dl (3.5-5.0); Alkaline Phosphatase 54 U/L (38-126); Blood Urea Nitrogen 29 mg/dl (7-17); Calcium 9.4 mg/dl (8.4-10.2); Carbon Dioxide 24 mmol/L (22-30); Chloride 110 mmol/L (98-107); Estimated Creatinine Clearance 32 ml/min; Glucose 62 mg/dl (70-99); Sodium 138 mmol/L (135-145); Total Bilirubin 0.5 mg/dl (0.2-1.3); Total Protein 4.7 g/dl (6.3-8.2)
[2025-01-12] MEDS: PRAVACHOL PO ×2 (08:55→10:08)
[2025-01-12] MEDS: MIRALAX 17 GRAMS PO (08:55)
[2025-01-12] MEDS: PROTONIX PO ×2 (08:55→10:09)
[2025-01-12] MEDS: WELLBUTRIN REGULAR RELEASE PO ×2 (08:55→10:09)
[2025-01-12] MEDS: PROCARDIA XL (EXTENDED RELEASE) PO ×2 (08:55→10:09)
[2025-01-12] MEDS: DESENEX/MITRAZOL/ZEASORB 1 APPLIC TOPICAL ×2 (08:56→20:54)
[2025-01-12] MEDS: COLACE PO (08:56)
[2025-01-12] MEDS: ELIQUIS PO ×2 (08:56→10:08)
--- NOTE | 2025-01-12 10:13 | PTCARENOTE ---
AM care provided, pt refusing PO meds after multiple attempts, batting at this RN with oral intake and MD jorge made aware, no new orders at this time.
--- NOTE | 2025-01-12 10:45 | W.PN.ID1 ---
Date of Service
Date of Service: January 12, 2025
Today's Communication
Narrow meropenem to ceftriaxone.
Assessment / Plan
# Left pyelonephritis
# Abd pain
# TME
# CKD3
- Ucx Klebsiella
- Abd pain unclear etiology. CT a/p limited study without contrast, no gross acute pathology
- Narrow meropenem to ceftriaxone.
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
Dementia
Hypertension
Paroxysmal atrial fibrillation
CKD 3
Hypothyroidism
Hx ESBL-Ecoli in urine
Anxiety/depression
SNF resident
Chief Complaint
-: UTI
Subjective / Review of Systems
Doesn't feel well. Continues to have abd pain.
Vital Signs / Physical Exam
Vital Signs
Vital Signs
Temp Pulse Resp BP Pulse Ox
97.8 F 63 20 137/84 95
01/12/25 07:00 01/12/25 07:00 01/12/25 07:00 01/12/25 07:00 01/12/25 10:32
Physical Exam
Constitutional: Acutely Ill and Chronically Ill
Cardiovascular: Regular Rate and S1/S2
Pulmonary: Clear
Gastrointestinal: Soft and Tender (lower abd, LLQ)
Genito-Urinary: [place], CVA Tenderness (mild left CVA tenderness) and Turbid Urine
Extremities: Negative Edema
Objective Data
Lab Data
Lab Results
01/12/25 05:38
01/12/25 05:38
Estimated Creat Clear 32 ml/min 01/12/25 05:38
Total Bilirubin 0.5 mg/dl (0.2-1.3) 01/12/25 05:38
AST 21 U/L (14-36) 01/12/25 05:38
ALT 14 U/L (0-35) 01/12/25 05:38
Alkaline Phosphatase 54 U/L (38-126) 01/12/25 05:38
Most recent labs reviewed.
Micro Results:
01/10/25 16:53 Urine Culture - Final
Urine Klebsiella pneumoniae
01/11/25 05:17 MRSA Screen - Final
Nose No Methicillin Resistant Staphylococcus aureus isolated.
Procedure Result Verified
Urine Culture Final 01/12/25-08
CC: Greater than 100,000 CFU/ML Klebsiella pneumoniae
Organism 1 Klebsiella pneumoniae
1. Klebsiella pneumoniae
M.I.C. RX
--------- ---
Amoxicillin/Potas. Clavulanate <=8/4 S
Ampicillin >16 R
Ampicillin/Sulbactam 8/4 S
Aztreonam <=4 S
Cefazolin <=2 S
Ertapenem <=0.5 S
Ciprofloxacin <=0.25 S
Gentamicin <=2 S
Meropenem <=1 S
Nitrofurantoin-Urine Only <=32 S
Piperacillin/Tazobactam <=8 S
Tetracycline <=4 S
Tobramycin <=2 S
Trimethoprim/Sulfamethoxazole <=2/38 S
01/10/[address]: No acute intracranial abnormality. Chronic left mastoid effusion.
02/11/25 CT a/p: No clear acute inflammatory process within the limitations of the lack of oral and intravenous contrast. Limited by patient motion artifact.
[2025-01-12 11:00] VITALS: BP 142/75
[2025-01-12] MEDS: ROCEPHIN 2000 MG IV (12:51)
[2025-01-12] MEDS: FLUSH (NSS) 1 FLUSH IV ×2 (12:51)
[2025-01-12] MEDS: STERILE WATER FOR INJECTION 20 ML IV (12:51)
[2025-01-12 15:00] VITALS: BP 151/103
[2025-01-12 19:30] VITALS: BP 145/99
[2025-01-12] MEDS: ZOFRAN IV (19:44)
[2025-01-12] MEDS: TYLENOL 650 MG PO (20:52)
[2025-01-12] MEDS: MELATONIN 6 MG PO (20:53)
[2025-01-12] MEDS: REMERON 15 MG PO (20:53)
[2025-01-12] MEDS: DESYREL 25 MG PO (20:53)
[2025-01-12] MEDS: ARICEPT 10 MG PO (20:53)
[2025-01-12] MEDS: ELIQUIS 5 MG PO (20:53)
[2025-01-12] MEDS: WELLBUTRIN REGULAR RELEASE 75 MG PO (20:54)
[2025-01-12] MEDS: COLACE 100 MG PO (20:54)
[2025-01-12] MEDS: SENOKOT 17.2 MG PO (20:54)
[2025-01-12 23:25] VITALS: BP 141/90
[2025-01-12] MEDS: LR IV (23:44)
[2025-01-13 03:10] VITALS: BP 156/93
[2025-01-13] MEDS: SYNTHROID 125 MCG PO (05:50)
[2025-01-13] MEDS: TYLENOL 650 MG PO (05:50)
[2025-01-13 07:36] VITALS: BP 187/102
[2025-01-13] MEDS: MIRALAX PO (08:27)
[2025-01-13] MEDS: COLACE PO ×2 (08:27→21:00)
[2025-01-13] MEDS: PROCARDIA XL (EXTENDED RELEASE) PO (09:07)
[2025-01-13] MEDS: WELLBUTRIN REGULAR RELEASE PO ×2 (09:07→21:00)
[2025-01-13] MEDS: ELIQUIS PO ×2 (09:07→21:00)
[2025-01-13] MEDS: PROTONIX PO (09:07)
[2025-01-13] MEDS: PRAVACHOL PO (09:07)
[2025-01-13] MEDS: DESENEX/MITRAZOL/ZEASORB 1 APPLIC TOPICAL (09:08)
[2025-01-13 11:15] LABS: ALT (SGPT) 15 U/L (0-35); AST (SGOT) 23 U/L (14-36); Alkaline Phosphatase 72 U/L (38-126); Blood Urea Nitrogen 24 mg/dl (7-17); Carbon Dioxide 21 mmol/L (22-30); Chloride 109 mmol/L (98-107); Estimated Creatinine Clearance 38 ml/min; Glucose 82 mg/dl (70-99); Potassium 3.9 mmol/L (3.5-5.1); Sodium 137 mmol/L (135-145); Total Bilirubin 0.6 mg/dl (0.2-1.3); Total Protein 5.6 g/dl (6.3-8.2); eGFR 49.86
[2025-01-13 11:17] LABS: % Basophils 1.2 % (0-2); % Eosinophils 3.6 % (0-6); % Immature Granulocytes 1.8 % (0-0.5); % Lymphocytes 16.2 % (20.5-51.1); % Monocytes 9.3 % (1.7-9.3); % Neutrophils 67.9 % (42.2-75.2); Absolute Basophils 0.1 10^3/uL (0-0.2); Absolute Eosinophils 0.4 10^3/uL (0-0.7); Absolute Immature Granulocytes 0.2 10^3/uL (0-0.05); Absolute Lymphocytes 1.6 10^3/uL (1.2-3.4); Absolute Monocytes 0.9 10^3/uL (0.1-0.6); Absolute Neutrophils 6.7 10^3/uL (1.4-6.5); Hematocrit 41.5 % (37.0-47.0); Hemoglobin 14.1 g/dL (12.0-16.0); Mean Corpuscular Hgb 30.9 pg (27.0-31.0); Mean Platelet Volume 11.1 fL (7.4-10.4); Nucleated Red Blood Cells % 0 %; Platelet Count 279 10^3/uL (130-400); Red Blood Cell Count 4.56 10^6/uL (4.20-5.40); Red Cell Dist. Width 16.5 % (11.5-14.5); White Blood Cell Count 9.9 10^3/uL (4.8-10.8)
[2025-01-13] MEDS: FLUSH (NSS) 1 FLUSH IV ×2 (11:36)
[2025-01-13] MEDS: ROCEPHIN 2000 MG IV (11:37)
[2025-01-13] MEDS: STERILE WATER FOR INJECTION 20 ML IV (11:37)
--- NOTE | 2025-01-13 11:46 | PTCARENOTE ---
MD made aware of decline in care, MD and team cdl driver in to see pt, pt to be placed on comfort measures.
--- NOTE | 2025-01-13 11:59 | HOSPNOTE ---
Spoke with daughter Augustine and the plan is to meet tomorrow to discuss hospice and the philosophy. Meeting set for 10am 01/14/25.
--- NOTE | 2025-01-13 12:48 | W.PN.ID1 ---
Date of Service
Date of Service: January 13, 2025
Today's Communication
- Continue ceftriaxone (d3)
- At time of discharge transition to doxycycline 100mg po bid through 01/24/25
Assessment / Plan
# Left pyelonephritis
# Abd pain
# TME
# CKD3
- Ucx Klebsiella
- L Abd pain possibly referred pain from pyelo. CT a/p limited study without contrast, no gross acute pathology
- Continue ceftriaxone (d3)
- At time of discharge transition to doxycycline 100mg po bid through 01/24/25.
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
Dementia
Hypertension
Paroxysmal atrial fibrillation
CKD 3
Hypothyroidism
Hx ESBL-Ecoli in urine
Anxiety/depression
SNF resident
Chief Complaint
-: UTI
Subjective / Review of Systems
Abd pain better.
Vital Signs / Physical Exam
Vital Signs
Vital Signs
Temp Pulse Resp BP Pulse Ox
97.3 F 85 16 187/102 98
01/13/25 07:36 01/13/25 07:36 01/13/25 07:36 01/13/25 07:36 01/13/25 07:36
Physical Exam
Constitutional: Chronically Ill
Cardiovascular: Regular Rate and S1/S2
Pulmonary: Clear
Gastrointestinal: Soft and Tender (lower abd, LLQ decreased tenderness)
Genito-Urinary: [place], CVA Tenderness (minimal left CVA tenderness) and Turbid Urine
Extremities: Negative Edema
Objective Data
Lab Data
Lab Results
01/13/25 10:23
01/13/25 10:23
Estimated Creat Clear 38 ml/min 01/13/25 10:23
Total Bilirubin 0.6 mg/dl (0.2-1.3) 01/13/25 10:23
AST 23 U/L (14-36) 01/13/25 10:23
ALT 15 U/L (0-35) 01/13/25 10:23
Alkaline Phosphatase 72 U/L (38-126) 01/13/25 10:23
Most recent labs reviewed.
Micro Results:
01/10/25 16:53 Urine Culture - Final
Urine Klebsiella pneumoniae
01/11/25 05:17 MRSA Screen - Final
Nose No Methicillin Resistant Staphylococcus aureus isolated.
Procedure Result Verified
Urine Culture Final 01/12/25-08
CC: Greater than 100,000 CFU/ML Klebsiella pneumoniae
Organism 1 Klebsiella pneumoniae
1. Klebsiella pneumoniae
M.I.C. RX
--------- ---
Amoxicillin/Potas. Clavulanate <=8/4 S
Ampicillin >16 R
Ampicillin/Sulbactam 8/4 S
Aztreonam <=4 S
Cefazolin <=2 S
Ertapenem <=0.5 S
Ciprofloxacin <=0.25 S
Gentamicin <=2 S
Meropenem <=1 S
Nitrofurantoin-Urine Only <=32 S
Piperacillin/Tazobactam <=8 S
Tetracycline <=4 S
Tobramycin <=2 S
Trimethoprim/Sulfamethoxazole <=2/38 S
01/10/[address]: No acute intracranial abnormality. Chronic left mastoid effusion.
02/11/25 CT a/p: No clear acute inflammatory process within the limitations of the lack of oral and intravenous contrast. Limited by patient motion artifact.
--- NOTE | 2025-01-13 13:44 | W.PN.HOSP.TC ---
Today's Communication/Plan
-
Hospice eval
Begin comfort meds
Continue antibiotic IV for now pending hospice
Assessment / Plan
Assessment / Plan
#Acute metabolic encephalopathy
Likely from urinary tract infection or polypharmacy
U/A evidence of UTI, culture positive for Klebsiella pneumonia
No elevated white count, patient afebrile
ID on board
CT head negative for acute intracranial abnormality
History of recurrent UTIs, with MDR ESBL E. coli
Patient has suprapubic catheter
Currently on IV ceftriaxone as per ID
Appreciate ID input
#Left lower quadrant tenderness
Diverticulitis versus cystitis versus left pyelonephritis
CT abdomen/pelvis�No clear acute inflammatory process
Patient reports abdominal pain has improved
Monitor for now
#Paroxysmal A-fib
Continue Eliquis
#CKD stage IIIb
Creatinine at 1.5
Continue to monitor
#Depression/anxiety/dementia
Continue Aricept, mirtazapine, trazodone
#Essential hypertension
Continue nifedipine
#GERD
PPI
#Hypothyroidism
Continue levothyroxine
CODE STATUS�DNR
DVT prophylaxis�Eliquis
Patient is refusing food, drink, medications, all sorts of intervention. Requests hospice which has been ordered. Will attempt to update family. Will place comfort medications and order set
Anticipated Discharge: > 48 hours
Subjective/Interval History
-
Date of Service: January 13, 2025
Seen and examined at the bedside. No acute events overnight. AFVSS though hypertensive this morning
Patient is refusing all medications, foods and drink, interaction. Patient states that she just wants to . Hospice has been consulted
Objective Data
-
Labs:
Laboratory Results
01/13/25 01/13/25
08: 10:23
WBC Cancelled 9.9
Hgb Cancelled 14.1
Hct Cancelled 41.5
Plt Count Cancelled 279
Sodium Cancelled 137
Potassium Cancelled 3.9
Chloride Cancelled 109 H
Carbon Dioxide Cancelled 21 L
BUN Cancelled 24 H
Creatinine Cancelled 1.1 H
Glucose Cancelled 82
Calcium Cancelled 10.0
Total Bilirubin Cancelled 0.6
AST Cancelled 23
ALT Cancelled 15
Alkaline Phosphatase Cancelled 72
Vital Signs:
Vital Signs
Temp Pulse Resp BP Pulse Ox
97.3 F 85 16 187/102 98
01/13/25 07:36 01/13/25 07:36 01/13/25 07:36 01/13/25 07:36 01/13/25 13:07
I&O
01/12/25 01/13/25 01/14/25
06:59 06:59 06:59
Intake Total 1070 / 1070 1600 / 1600
Output Total 200 / 200 475 / 475
Balance 870 / 870 1125 / 1125
Review of Systems
-
History Source: Patient
All other systems: Reviewed and negative
Physical Exam
-
General: Well Developed, No Apparent Distress and Obese
HEENT: Normocephalic, Atraumatic and Moist Mucous Membranes
Respiratory: Clear to Auscultation and Non Labored Respirations
Cardiac: Regular Rhythm and S1/S2; Negative Murmur, Rub or Gallop
GI: Soft, Nontender, Nondistended and Normal Bowel Sounds
Genito-urinary: Supra Pubic Tube and Other (Suprapubic tenderness)
Musculoskeletal: No Clubbing, No Cyanosis and No Edema
Skin: Warm and Dry; Negative Rash
Neuro: Awake, Alert and Nonfocal/Grossly Intact; Negative Oriented
Psych: Agitated
Data Reviewed
-
Labs: Labs Reviewed by me, Discussed with Nurse and Other (Hospice team)
--- NOTE | 2025-01-13 15:25 | CM ---
Chart reviewed and plan is for hospice, hospice options reviewed and patient's daughter are agreeable to [facility], referral sent to [facility] and meeting set up for 10am tomorrow.
Plan: Meeting with [facility] and family tomorrow at 10am.
[2025-01-13] MEDS: MORPHINE SULFATE 1 MG IV (17:04)
[2025-01-13] MEDS: DESYREL PO (23:00)
[2025-01-13] MEDS: SENOKOT PO (23:00)
[2025-01-13] MEDS: MELATONIN PO (23:00)
[2025-01-13] MEDS: REMERON PO (23:00)
[2025-01-13] MEDS: ARICEPT PO (23:00)
[2025-01-13 23:22] VITALS: BP 142/108
[2025-01-14] MEDS: DESENEX/MITRAZOL/ZEASORB 1 APPLIC TOPICAL ×3 (00:07→22:52)
[2025-01-14] MEDS: SYNTHROID PO (06:25)
[2025-01-14] MEDS: PRAVACHOL PO (07:43)
[2025-01-14] MEDS: PROTONIX PO (07:43)
[2025-01-14] MEDS: MIRALAX PO (07:43)
[2025-01-14] MEDS: WELLBUTRIN REGULAR RELEASE PO (07:43)
[2025-01-14] MEDS: ELIQUIS PO (07:43)
[2025-01-14] MEDS: PROCARDIA XL (EXTENDED RELEASE) PO (07:43)
[2025-01-14] MEDS: COLACE PO ×2 (07:43→22:52)
[2025-01-14 08:05] VITALS: BP 145/93
--- NOTE | 2025-01-14 10:41 | HOSPNOTE ---
Home tomorrow with hospice. Equipment was ordered and will be delivered in the am. OOH DNR needed on chart transport is needed. Attending and CM aware of plan. Family in agreement with hospice. Once patient is home we will admit onto our service.
--- NOTE | 2025-01-14 11:27 | W.PN.ID1 ---
Date of Service
Date of Service: January 14, 2025
Today's Communication
Switch ceftriaxone to Unasyn.
Assessment / Plan
# Left pyelonephritis
# LLQ Abd pain - slowly improving
# TME
# CKD3
- Ucx Klebsiella
- Left CVA tenderness resolved.
- L Abd pain possibly referred pain from pyelo. CT a/p limited study without iv/po contrast, no gross acute pathology
- Broaden ceftriaxone (d5) to Unasyn to cover possible diverticulitis
- At time of discharge transition to Augmentin 875mg po bid through 01/24/25.
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
Dementia
Hypertension
Paroxysmal atrial fibrillation
CKD 3
Hypothyroidism
Hx ESBL-Ecoli in urine
Anxiety/depression
SNF resident
Chief Complaint
-: UTI
Subjective / Review of Systems
Slowly feeling better. Abd pain better.
Vital Signs / Physical Exam
Vital Signs
Vital Signs
Temp Pulse Resp BP Pulse Ox
98.0 F 83 18 145/93 95
01/14/25 08:05 01/14/25 08:05 01/14/25 08:05 01/14/25 08:05 01/14/25 08:05
Physical Exam
Constitutional: Chronically Ill
Cardiovascular: Regular Rate and S1/S2
Gastrointestinal: Soft, Tender (LLQ mild to mod) and Non Distended
Genito-Urinary: Milan and Clear Urine; Negative CVA Tenderness
Extremities: Negative Edema
Objective Data
Lab Data
Lab Results
01/13/25 10:23
01/13/25 10:23
Estimated Creat Clear 38 ml/min 01/13/25 10:23
Total Bilirubin 0.6 mg/dl (0.2-1.3) 01/13/25 10:23
AST 23 U/L (14-36) 01/13/25 10:23
ALT 15 U/L (0-35) 01/13/25 10:23
Alkaline Phosphatase 72 U/L (38-126) 01/13/25 10:23
Most recent labs reviewed.
Micro Results:
01/10/25 16:53 Urine Culture - Final
Urine Klebsiella pneumoniae
01/11/25 05:17 MRSA Screen - Final
Nose No Methicillin Resistant Staphylococcus aureus isolated.
Procedure Result Verified
Urine Culture Final 01/12/25-0849
CC: Greater than 100,000 CFU/ML Klebsiella pneumoniae
Organism 1 Klebsiella pneumoniae
1. Klebsiella pneumoniae
M.I.C. RX
--------- ---
Amoxicillin/Potas. Clavulanate <=8/4 S
Ampicillin >16 R
Ampicillin/Sulbactam 8/4 S
Aztreonam <=4 S
Cefazolin <=2 S
Ertapenem <=0.5 S
Ciprofloxacin <=0.25 S
Gentamicin <=2 S
Meropenem <=1 S
Nitrofurantoin-Urine Only <=32 S
Piperacillin/Tazobactam <=8 S
Tetracycline <=4 S
Tobramycin <=2 S
Trimethoprim/Sulfamethoxazole <=2/38 S
01/10/[address]: No acute intracranial abnormality. Chronic left mastoid effusion.
02/11/25 CT a/p: No clear acute inflammatory process within the limitations of the lack of oral and intravenous contrast. Limited by patient motion artifact.
[2025-01-14] MEDS: MORPHINE SULFATE 1 MG IV (12:45)
--- NOTE | 2025-01-14 14:46 | W.PN.HOSP.TC ---
Today's Communication/Plan
-
home hospice kelly
abx
Assessment / Plan
Assessment / Plan
#Acute metabolic encephalopathy
Likely from urinary tract infection or polypharmacy
U/A evidence of UTI, culture positive for Klebsiella pneumonia
No elevated white count, patient afebrile
ID on board
CT head negative for acute intracranial abnormality
History of recurrent UTIs, with MDR ESBL E. coli
Patient has suprapubic catheter
Currently on IV ceftriaxone as per ID
Appreciate ID input
#Left lower quadrant tenderness
Diverticulitis versus cystitis versus left pyelonephritis
CT abdomen/pelvis�No clear acute inflammatory process
Patient reports abdominal pain has improved
Monitor for now
#Paroxysmal A-fib
Continue Eliquis
#CKD stage IIIb
Creatinine at 1.5
Continue to monitor
#Depression/anxiety/dementia
Continue Aricept, mirtazapine, trazodone
#Essential hypertension
Continue nifedipine
#GERD
PPI
#Hypothyroidism
Continue levothyroxine
CODE STATUS�DNR
DVT prophylaxis�Eliquis
Patient is refusing food, drink, medications, all sorts of intervention.
Dispo: Home Hospice tomorrow
Anticipated Discharge: Within 24 hours
Subjective/Interval History
-
Date of Service: January 14, 2025
No acute events
Objective Data
-
Vital Signs:
Vital Signs
Temp Pulse Resp BP Pulse Ox
98.0 F 83 18 145/93 95
01/14/25 08:05 01/14/25 08:05 01/14/25 08:05 01/14/25 08:05 01/14/25 11:58
I&O
01/13/25 01/14/25 01/15/25
06:59 06:59 06:59
Intake Total 1600 / 1600 0 / 0
Output Total 475 / 475 390 / 390
Balance 1125 / 1125 -390 / -390
Review of Systems
-
History Source: Patient
All other systems: Not reviewed unless documented
Data Reviewed
-
CT Scan: Report Reviewed by me
Labs: Labs Reviewed by me, Discussed with Nurse and Other (Hospice team)
--- NOTE | 2025-01-14 14:52 | PN.CDI ---
CDI
- -
CDI:
Physician Documentation Request
Admit Date: 01/10/25 21:27
Dear Doctor Yuri,
Patient admitted with UTI.
01/13 Nursing skin assessment, 'Stage 2 sacral pressure injury, POA.'
Physician documentation of the type and location of wounds is required for compliant documentation. Based on the above clinical findings and your assessment, please provide the following in your progress note:
Type (etiology) of ulcer/wound:
- Pressure (decubitus) ulcer
- Other
- Unable to determine
For a pressure ulcer, please also include the stage* of the ulcer:
- Stage 1 - Skin intact, non-blanchable redness
- Stage 2 - Partial thickness loss of dermis, includes intact or open blister
- Stage 3 - Full thickness tissue not including bone, tendon or muscle
- Stage 4 - Full thickness tissue loss, including exposed bone, tendon or muscle
- Unstageable - Full thickness loss in which the base of the ulcer is covered by slough (yellow, parada, billy, green or brown) and/or eschar (parada, brown or black) in the wound bed.
- Unable to determine
Use of terms such as suspected, likely, concern for, or probable (associated with a specific diagnosis that is being evaluated, monitored, or treated as if it exists) are acceptable and can be coded in the inpatient setting, when documented at the
time of discharge.
Thank you,
Jamee FOREMAN,RN,CCDS
CDI Specialist
Available via [place] text
Please use your independent medical judgment in providing your response.
*Source: National Pressure Ulcer Advisory Panel (NPUAP)
--- NOTE | 2025-01-14 15:01 | PN.CDI ---
CDI
- -
CDI:
Physician Documentation Request
Admit Date: 01/10/25 21:27
Dear Doctor Yuri,
Patient admitted with UTI.
01/14 PN, 'U/A evidence of UTI, culture positive for Klebsiella pneumonia....Patient has suprapubic catheter.'
Please clarify the likely relationship between these conditions:
Yes, UTI is related to/associated with/due to suprapubic catheter
No, UTI is not related to/associated with/due to suprapubic catheter but it is due to ___. (Please specify)
Unable to determine
Use of terms such as suspected, likely, concern for, or probable (associated with a specific diagnosis that is being evaluated, monitored, or treated as if it exists) are acceptable and can be coded in the inpatient setting, when documented at the
time of discharge.
Thank you,
Jamee FOREMAN,RN,CCDS
CDI Specialist
Available via [place] text
Please use your independent medical judgment in providing your response.
--- NOTE | 2025-01-14 16:29 | CM ---
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
patient has 24 hour caregivers in home along with family. OOH DNR has been placed on chart and will need to be completed by physician.
Plan; Home by ambulance, with [facility].
--- NOTE | 2025-01-14 17:17 | PTCARENOTE ---
Pt screaming at administration of IV ABX today, ripping at IV site, ABX marked as not given, pt to be going home on hospice tomorrow at noon. No new orders at this time.
[2025-01-14 19:30] VITALS: BP 142/97
[2025-01-14] MEDS: REMERON 15 MG PO (22:51)
[2025-01-14] MEDS: DESYREL 25 MG PO (22:51)
[2025-01-14] MEDS: MELATONIN 6 MG PO (22:51)
[2025-01-14] MEDS: ARICEPT 10 MG PO (22:51)
[2025-01-14] MEDS: ELIQUIS 5 MG PO (22:52)
[2025-01-14] MEDS: WELLBUTRIN REGULAR RELEASE 75 MG PO (22:52)
[2025-01-14] MEDS: SENOKOT PO (22:53)
[2025-01-15 07:05] VITALS: BP 138/84
[2025-01-15] MEDS: ELIQUIS PO (07:14)
[2025-01-15] MEDS: SYNTHROID PO (07:14)
[2025-01-15] MEDS: COLACE PO (07:14)
[2025-01-15] MEDS: PRAVACHOL PO (07:14)
[2025-01-15] MEDS: PROTONIX PO (07:14)
[2025-01-15] MEDS: WELLBUTRIN REGULAR RELEASE PO (07:14)
[2025-01-15] MEDS: MIRALAX PO (07:14)
[2025-01-15] MEDS: PROCARDIA XL (EXTENDED RELEASE) PO (07:14)
[2025-01-15] MEDS: DESENEX/MITRAZOL/ZEASORB 1 APPLIC TOPICAL (07:40)
--- NOTE | 2025-01-15 11:06 | CM ---
OOH DNR has been completed by physician and placed on chart, IMM discussed with family and copy provided, patient is for discharge to home today on [facility], transport has been set up for 12:[address] [place] [address],
patient has 5 steps up into home and 3 steps down into home. digital sales manager spoke with patient's daughter and equipment to be delivered this am.
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
--- NOTE | 2025-01-15 11:48 | W.PN.HOSP.TC ---
Addendum entered and electronically signed by Colin Welch MD 01/16/25 15:36:
Stage 2 sacral pressure injury, POA.
#UTI, unable to determine due to suprapubic catheter
Addendum entered and electronically signed by Colin Welch MD 01/16/25 15:21:
[id number]
Original Note:
Today's Communication/Plan
-
dc to hospice
augmentin to complete course
Assessment / Plan
Assessment / Plan
#Acute metabolic encephalopathy
Likely from urinary tract infection or polypharmacy
U/A evidence of UTI, culture positive for Klebsiella pneumonia
No elevated white count, patient afebrile
ID on board
CT head negative for acute intracranial abnormality
History of recurrent UTIs, with MDR ESBL E. coli
Patient has suprapubic catheter
Currently on IV ceftriaxone as per ID
Appreciate ID input
#Left lower quadrant tenderness
Diverticulitis versus cystitis versus left pyelonephritis
CT abdomen/pelvis�No clear acute inflammatory process
Patient reports abdominal pain has improved
Monitor for now
#Paroxysmal A-fib
Continue Eliquis
#CKD stage IIIb
Creatinine at 1.5
Continue to monitor
#Depression/anxiety/dementia
Continue Aricept, mirtazapine, trazodone
#Essential hypertension
Continue nifedipine
#GERD
PPI
#Hypothyroidism
Continue levothyroxine
CODE STATUS�DNR
DVT prophylaxis�Eliquis
Patient is refusing food, drink, medications, all sorts of intervention.
Dispo: Home Hospice today
More than 30 minutes spent in discharge including
Final examination of the patient
Summarizing hospital stay
Instructions for continuing care to all relevant caregivers
Preparation of discharge records, prescriptions, and referral forms
Total time spent (in minutes): 36
Anticipated Discharge: Today
Subjective/Interval History
-
Date of Service: January 15, 2025
No acute events
Objective Data
-
Vital Signs:
Vital Signs
Temp Pulse Resp BP Pulse Ox
98.5 F 80 18 138/84 98
01/15/25 07:05 01/15/25 07:05 01/15/25 07:05 01/15/25 07:05 01/15/25 07:05
I&O
01/14/25 01/15/25 01/16/25
06:59 06:59 06:59
Intake Total 0 / 0 50 / 50
Output Total 390 / 390 175 / 175
Balance -390 / -390 -125 / -125
Review of Systems
-
History Source: Patient
All other systems: Not reviewed unless documented
Data Reviewed
-
CT Scan: Report Reviewed by me
Labs: Labs Reviewed by me
--- NOTE | 2025-01-15 11:52 | PTCARENOTE ---
Patient being discharged home on home hospice, transported via EMS. IV pulled by this RN, hygiene provided prior to DC, suprapubic catheter intact draining milky yellow/ila urine. Site care provided. Belongings placed in patient belonging bag at
bedside, no family at bedside.
--- NOTE | 2025-01-15 11:53 | W.DS.TRANS ---
DC Summary - [employer]
-
Discharge Instructions:
Discharge Diagnosis/Procedures Acute metabolic encephalopathy
Activity As tolerated
Instructions:
Stand-Alone Forms:
Changes to Home Medications: Yes
Discharge Medications:
DC Medications w/original date entered in [facility]
acetaminophen 650 mg tablet,extended release 650 mg PO Q4HPRN PRN mild pain 10/13/24
apixaban 5 mg tablet 5 mg PO BID Blood Clot Prevention/Tx 10/13/24
bisacodyl 10 mg rectal suppository 10 mg SD DAILYPRN PRN if no bm aftr mom 10/13/24
bupropion HCl 75 mg tablet 75 mg PO BID Mental Health/Anxiety 10/13/24
cholecalciferol (vitamin D3) 50 mcg (2,000 unit) tablet 50 mcg PO DAILY Supplement 10/13/24
docusate sodium 100 mg tablet 100 mg PO BID Gastrointestinal Issue 10/13/24
donepezil 10 mg tablet 10 mg PO HS Neurological Condition 10/13/24
levothyroxine 125 mcg tablet 125 mcg PO DAILY Thyroid 10/13/24
magnesium hydroxide 400 mg/5 mL oral suspension (Milk of Magnesia) 30 ml PO HSPRN PRN constipation 10/13/24
nifedipine 60 mg tablet,extended release 24 hr 60 mg PO DAILY Blood Pressure 10/13/24
omeprazole 20 mg capsule,delayed release 20 mg PO DAILY Gastrointestinal Issue 10/13/24
polyethylene glycol 3350 17 gram oral powder packet 17 g PO DAILY Gastrointestinal Issue 10/13/24
pravastatin 40 mg tablet 40 mg PO DAILY High Cholesterol 10/13/24
saliva stimulant comb. no.3 (Biotene Moisturizing Mouth mucosal spray) 1 applic mucous membrane Q2HPRN PRN dry mouth 10/13/24
sennosides 8.6 mg tablet (senna) 17.2 mg PO HS Constipation 10/13/24
trazodone 50 mg tablet 25 mg PO HS Sleep 10/13/24
ipratropium 0.5 mg-albuterol 3 mg (2.5 mg base)/3 mL nebulization soln 3 ml inhalation R Q6HPRN PRN sob 12/07/24
melatonin 3 mg tablet 6 mg PO HS Sleep 01/10/25
mirtazapine 15 mg tablet 15 mg PO HS Mental Health/Anxiety 01/10/25
amoxicillin 875 mg-potassium clavulanate 125 mg tablet 1 tab PO BID 10 days #20 tabs 01/15/25
Home Medication Changes
amoxicillin 875 mg-potassium clavulanate 125 mg tablet 1 tab PO BID 10 days #20 tabs 01/15/25
Pending Results: No
== END 2025-01-15 12:56 | disposition hospice, home (50) | DRG 689 ==
LOC: 2 NORTH 21:27
PROVIDERS: Internal Medicine; Registered Nurse; Student in an Organized Health Care Education/Training Program; ADMITTING PHYSICIAN Hospitalist; ATTENDING PHYSICIAN Internal Medicine; CONSULT PHYSICIAN Internal Medicine Infectious Disease; EMERGENCY PHYSICIAN Student in an Organized Health Care Education/Training Program; FAMILY PHYSICIAN Internal Medicine
DX: N12 Tubulo-interstitial nephritis, not specified as acute or chronic (principal); G92.8 Other toxic encephalopathy; I50.20 Unspecified systolic (congestive) heart failure; F02.83 Dementia in other diseases classified elsewhere, unspecified severity, with mood disturbance; I13.0 Hypertensive heart and chronic kidney disease with heart failure and stage 1 through stage 4 chronic kidney disease, or unspecified chronic kidney disease; Z16.11 Resistance to penicillins; F02.84 Dementia in other diseases classified elsewhere, unspecified severity, with anxiety; G30.9 Alzheimer's disease, unspecified; F32.A Depression, unspecified; E03.9 Hypothyroidism, unspecified; K21.9 Gastro-esophageal reflux disease without esophagitis; B96.1 Klebsiella pneumoniae [K. pneumoniae] as the cause of diseases classified elsewhere; I48.0 Paroxysmal atrial fibrillation; N18.32 Chronic kidney disease, stage 3b; R13.10 Dysphagia, unspecified; L89.152 Pressure ulcer of sacral region, stage 2; E78.5 Hyperlipidemia, unspecified; Z66 Do not resuscitate; Z86.19 Personal history of other infectious and parasitic diseases; Z79.01 Long term (current) use of anticoagulants; Z79.890 Hormone replacement therapy; Z87.440 Personal history of urinary (tract) infections
CPT/HCPCS: 70450; 74176; 80048; 80053; 81003; 81015; 85025; 87070; 87077; 87086; 87186; 93005; 96361; 96374; 99283; 99285; J2185